=== PATIENT | male | born 1975 | race Caucasian/White ===

== ENCOUNTER 2018-03-26 16:14 | Emergency (ER) | payer SELFPAY ==
[2018-03-26 16:18] VITALS: BP 125/85; PULSE 92; RESP 16; TEMP 36.7; O2SAT 97
[2018-03-26] MEDS: Penicillin V POTASSIUM 500 MG TAB PO (16:51)
--- NOTE | 2018-03-27 13:06 | W.ED.FU ---
Follow Up Plan: Please see paper documentation for downtime charting
== END 2018-03-26 17:20 ==
PROVIDERS: Emergency Provider Nurse Practitioner Family
DX: R68.84 Jaw pain (principal); K04.7 Periapical abscess without sinus
CPT/HCPCS: 99283

== ENCOUNTER 2019-02-03 09:11 | Emergency (ER) | payer OTHER, SELFPAY ==
[2019-02-03] VITALS (12 sets, daily range): BP systolic 92–152; BP diastolic 72–97; PULSE 82–123; RESP 11–19; TEMP 36.5; O2SAT 94–97
--- NOTE | 2019-02-03 09:28 | DI.US_ITS ---
SYMPTOM/DIAGNOSIS: SWELLING, PAIN DUPLEX VENOUS ULTRASOUND RIGHT LOWER EXTREMITY: Duplex evaluation of the deep venous system was performed according to the usual protocol. The deep veins are freely compressible throughout to the level of the popliteal veins. There is normal doppler flow visible throughout and there is excellent flow augmentation with manual calf compression. CONCLUSION: No evidence of deep venous thrombosis. Note is made of an approximately 4 cm. in diameter right inguinal lymph node which is a nonspecific finding.
--- NOTE | 2019-02-03 09:31 | W.ED.GENAD ---
Discharge Plan Disposition Patient Disposition: HOME Condition: Stable Discharge Details Chief Complaint: Vascular Clinical Impression: Cellulitis Primary Care Provider: None,None ED Provider: Valentino Brihgt Home Meds and New Rx's Prescriptions: New cephalexin [Keflex] 500 mg capsule 500 mg PO QID 7 Days Qty: 28 RF: 0 Continued ibuprofen 800 mg Tablet 800 mg PO DAILY RF: 0 acetaminophen [Tylenol] 325 mg Tablet 325 - 650 mg PO PRN PRNRF: 0 Discharge Instructions Instructions: Cellulitis (ED) Additional Instructions: Continue to monitor symptoms over the next 24 to 48 hours. Return immediately for any new or significant worsening of symptoms or rapid spread of redness. Otherwise follow-up with primary care provider for reassessment as needed. Take your antibiotic for the full 7 days to ensure full resolution of your infection Stand Alone Forms: Work Release Referrals: Primary Care Provider [Outside] Medical Decision Making Patient presenting to the emergency department for chief complaint of right lower extremity pain and swelling. Patient states that this started 2 days ago and has worsened over the past 48 hours with erythema, subjective fever and chills last night,. He states that he started with some mid thigh pain that went away last night but then noted some significant swelling to his lower foot. Patient states previous history of similar episode but at that time was told it was cellulitis. Patient did take acetaminophen last night but has not taken anything for pain this morning. Physical exam shows a significantly swollen right lower extremity specifically from the calf down to the foot, mild erythema diffusely through the distal lower leg with tenderness to palpation of the lower right extremity. Exam is otherwise unremarkable nondiagnostic. Plan to check labs and ultrasound imaging of the right lower extremity for concern of DVT. Patient given ketorolac pending results. Per RN protocol EKG was performed and shows sinus rhythm, rate of 90, normal axis, inverted T waves in lead III but otherwise nondiagnostic no acute STEMI. EKG reviewed with attending physician. Review unremarkable and shows no leukocytosis, CMP shows elevated anion gap increased BUN and creatinine with mild decrease of GFR per patient's baseline. Otherwise CMP nondiagnostic. Pending ultrasound results spoke with patient and patient states that he had been having a hard time keeping down food and fluids due to his nausea and vomiting that is now resolving but he is now able to tolerate p.o. intake. Patient offered IV fluids which she refused at this time. Given that patient can tolerate p.o. intake I feel that is reasonable. Review of ultrasound shows no DVT but some lymphadenopathy noted. Given that patient states fever and chills, similar episode of cellulitis in the past with same symptoms, and no DVT with lymphadenopathy I do feel cellulitis is highly likely. Skin marker was utilized by direct support staff to marked out margins of erythema and patient placed on Keflex. Return precautions were discussed. Patient states he is going to establish a primary care provider hopefully today for reassessment and further care of his health needs. After discussion of diagnosis and plan of care patient has no further needs, questions, or concerns and states clear understanding to return to the emergency department for any worsening symptoms. HPI General Mode of arrival: ambulatory. Date/Time Provider Initiated Documentation: 02/03/19 09:17. Limitations to Documentation: no limitations. Information obtained by: patient and RN notes reviewed. History of Present Illness 44 year old M presents to the emergency department with the chief complaint of Right leg swelling and pain. , described as moderate, with intensity rated at 7. Quality is described as burning and aching, and is localized to the right and lower extremity. Patient started experiencing this day(s) (3) and it has been constant. No relieving factors improve symptom(s), No exacerbating factors reported . Patient did receive the following treatments prior to arrival, none Related Data Home Medications Medication Instructions Recorded Confirmed ibuprofen 800 mg PO DAILY 03/26/18 02/03/19 acetaminophen [Tylenol] 325 - 650 mg PO PRN PRN 02/03/19 02/03/19 cephalexin [Keflex] 500 mg PO QID 7 Days #28 cap 02/03/19 Previous Rx's Medication Instructions Recorded cephalexin [Keflex] 500 mg PO QID 7 Days #28 cap 02/03/19 Allergies Allergy/AdvReac Type Severity Reaction Status Date / Time No Known Allergies Allergy Unverified 02/03/19 09:20 General Stated Complaint: Vascular MIRELLA: 3 Review of Systems Constitutional Reports chills, Reports fever(s) and Denies headache(s) ENT Denies headache(s) Cardiovascular Denies chest pain, Denies irregular heart rhythm, Reports claudication, Reports leg edema, Denies lightheadedness and Denies dyspnea Respiratory Denies dyspnea Gastrointestinal Denies abdominal pain, Reports nausea and Reports vomiting (now resolved) Musculoskeletal Reports as per HPI Neurologic Denies headache(s) and Denies sensory deficit PFSH Social History Smoking/Tobacco Use Status: Former Tobacco Use Drug use: Rarely Do you feel safe at home: Yes Do you feel safe in your relationship?: Yes Exam Const General: cooperative, healthy appearing, comfortable and no acute distress Orientation: alert, awake and oriented x3 Resp Effort & Inspection: normal respiratory effort and able to speak in complete sentences Auscultation: clear to auscultation bilaterally Cardio Rate: regular rate Rhythm: regular rhythm Heart Sounds: S1 normal and S2 normal Pulses: normal peripheral pulses Neuro General: alert, awake, oriented x3, moves all extremities and no focal motor deficits Extrem Right lower extremity: edema Details: pitting and 2+ (right lower from calf down through foot), hip/thigh Details: no tenderness and no swelling, knee Details: swelling; no tenderness, lower leg Details: erythema Location: of the distal lower leg and tenderness (Diffuse distal lower leg) and ankle Details: normal to inspection and tenderness (Diffuse) Course Vital Signs Temperature 36.5 C 02/03/19 09:15 Pulse 98 H 02/03/19 09:15 Respiratory Rate 13 02/03/19 09:15 Blood Pressure 146/91 H 02/03/19 09:15 Pulse Oximetry 95 02/03/19 09:15 Temperature 36.5 C 02/03/19 09:15 Temperature Source Skin 02/03/19 09:15 Pulse 98 H 02/03/19 09:15 Respiratory Rate 13 02/03/19 09:15 Respiratory Effort 02/03/19 09:22 Blood Pressure 146/91 H 02/03/19 09:15 Pulse Oximetry 95 02/03/19 09:15 Oxygen Delivery Method Room Air 02/03/19 09:15 Oxygen Flow Rate 0 02/03/19 09:15
[2019-02-03] MEDS: Ketorolac 30 MG/ML VIAL IVP (09:44)
[2019-02-03 10:02] LABS: Abs Immature Grans 0.02 k/cumm (0.0-0.09); Absolute Basophil Count 0.02 k/cumm (0.0-0.2); Absolute Eosinophil Count 0.29 k/cumm (0.0-0.7); Absolute Lymphocyte Count 1.25 k/cumm (1.2-3.4); Absolute Neutrophil Count 6.69 k/cumm (1.2-6.7); Basophils % 0.2; HCT 43.7 % (40.0-50.0); HGB 14.8 g/dL (13.5-17.5); Immature Grans % 0.2; Lymphocytes % 12.9; Mean Corp. HGB Concentration 33.9 g/dL (32.0-36.0); Mean Corpuscular Hemoglobin 33.1 pg (27.0-33.0); Mean Corpuscular Volume 97.8 fL (80-95); Mean Platelet Volume 9.6 fL (8.0-11.0); Monocytes % 14.5; Neutrophils % 69.2; Platelet Count 246 x1000/uL (130-400); RBC 4.47 m/cumm (4.50-6.00); RBC Distribution Width 12.1 % (11.8-14.1); White Blood Cell Count 9.67 k/cumm (4.4-10.8)
[2019-02-03 10:12] LABS: ALT 29 U/L (12-78); AST 14 U/L (15-37); Albumin 3.7 g/dL (3.4-5.0); Alkaline Phosphatase 69 U/L (46-116); Anion Gap 13.6 mmol/L (3-11); BUN 19 mg/dL (7-18); Bilirubin, Total 0.5 mg/dL (0.2-1.0); CO2 23.4 mmol/L (21.0-32.0); CREATININE 1.48 mg/dL (0.70-1.30); Calcium 8.7 mg/dL (8.5-10.1); Chloride 102 mmol/L (98-107); Estimated GFR 51.63 (mL/min/1.73m2); Glucose 106 mg/dL (70-100); Potassium 3.5 mmol/L (3.5-5.1); Prothrombin Time 9.9 sec (9.3-11.0); Sodium 139 mmol/L (136-145); Total Protein 8.3 g/dL (6.4-8.2)
[2019-02-03] MEDS: Cephalexin 500 MG CAP PO (11:10)
== END 2019-02-03 11:25 | disposition home or self-care (01) ==
PROVIDERS: Emergency Provider Nurse Practitioner Family
DX: L03.115 Cellulitis of right lower limb (principal); R11.2 Nausea with vomiting, unspecified
CPT/HCPCS: 36415; 80053; 93005; 96374; 99285; 85025; 85610; 85730; 93010; 93971; 99284; J1885

== ENCOUNTER 2019-03-23 15:39 | Outpatient (CLI) | payer OTHER, SELFPAY ==
--- NOTE | 2019-03-23 15:10 | DI.RAD_ITS ---
EXAM: XR KNEE RT 3V AP,LAT,HRIA INDICATION: KNEE PAIN M25.569. COMPARISON: No exams were available for comparison TECHNIQUE: 2D digital imaging was performed. FINDINGS: There is prominent periarticular spurring throughout. There is also prominence of the tibial tuberc le. There is mild to moderate narrowing of the lateral femoral tibial joint space. IMPRESSION: Moderate to severe degenerative changes.
--- NOTE | 2019-03-23 15:10 | DI.RAD_ITS ---
EXAM: XR KNEE LT 3V AP,LAT,HIRA INDICATION: KNEE PAIN M25.569. COMPARISON: None TECHNIQUE: 2D digital imaging was performed. FINDINGS: There is prominent periarticular spurring throughout. Is mild narrowing of the lateral femoral tibi al joint space. No joint effusion is seen IMPRESSION: Moderate to severe degenerative changes.
== END 2019-03-23 15:59 ==
PROVIDERS: PCP Nurse Practitioner Family; Visit Provider Nurse Practitioner Family
DX: M25.562 Pain in left knee (principal); M25.561 Pain in right knee; M17.0 Bilateral primary osteoarthritis of knee
CPT/HCPCS: 73562

== ENCOUNTER 2019-04-20 20:55 | Outpatient (REF) | payer OTHER, SELFPAY ==
[2019-04-20 20:02] LABS: ALT 25 U/L (16-63); AST 18 U/L (15-37); Albumin 3.8 g/dL (3.4-5.0); Alkaline Phosphatase 70 U/L (46-116); Anion Gap 9.9 mmol/L (3-11); BUN 21 mg/dL (7-18); Bilirubin, Total 0.7 mg/dL (0.2-1.0); CO2 27.1 mmol/L (21.0-32.0); CREATININE 1.29 mg/dL (0.70-1.30); Calcium 8.9 mg/dL (8.5-10.1); Calculated LDL 84 mg/dL; Chloride 105 mmol/L (98-107); Cholesterol 136 mg/dL (50-200); Glucose 103 mg/dL (70-100); HDL Cholesterol 42 mg/dL (40-60); Potassium 4.2 mmol/L (3.5-5.1); Sodium 142 mmol/L (136-145); Triglyceride 50 mg/dL (30-150)
[2019-04-20 20:25] LABS: Uric Acid 9.4 mg/dL (3.5-7.2)
== END 2019-04-20 21:15 ==
LOC: NCHCN 20:55
PROVIDERS: PCP Nurse Practitioner Family; Visit Provider Nurse Practitioner Family
DX: Z00.00 Encounter for general adult medical examination without abnormal findings (principal); Z13.220 Encounter for screening for lipoid disorders; Z13.228 Encounter for screening for other metabolic disorders; Z13.89 Encounter for screening for other disorder
CPT/HCPCS: 80053; 80061; 84550

== ENCOUNTER 2019-07-13 15:04 | Emergency (ER) | payer OTHER, SELFPAY ==
[2019-07-13] VITALS (28 sets, daily range): BP systolic 90–140; BP diastolic 57–114; PULSE 54–154; RESP 12–20; TEMP 36.4; O2SAT 94–98
[2019-07-13] MEDS: dilTIAZem 25 MG/5 ML VIAL 20 MG IVP (15:17)
[2019-07-13] MEDS: Normal Saline 1,000 ML 1000 ML IV (15:20)
--- NOTE | 2019-07-13 15:20 | DI.RAD_ITS ---
EXAM: XR PORTABLE CHEST AP INDICATION: short of breath. COMPARISON: No exams were available for comparison TECHNIQUE: 2D digital imaging was performed. FINDINGS: The heart size is normal. A small area of scarring is seen at the left lower lung field, unchanged . The lungs are otherwise clear. No infiltrate, effusion or pneumothorax is seen. IMPRESSION: Negative chest x-ray.
--- NOTE | 2019-07-13 15:20 | W.ED.GENAD ---
Discharge Plan Disposition Patient Disposition: HOME Condition: Stable Discharge Details Chief Complaint: Palpitatns Clinical Impression: Atrial fibrillation with RVR Primary Care Provider: Masha Quiñones ED Provider: Lamont Ward Home Meds and New Rx's Prescriptions: Continued ibuprofen 800 mg Tablet 800 mg PO DAILY RF: 0 acetaminophen [Tylenol] 325 mg Tablet 325 - 650 mg PO PRN PRNRF: 0 meloxicam 7.5 mg Tablet 7.5 mg PO DAILY RF: 0 allopurinol 100 mg Tablet 100 mg PO DAILY RF: 0 Discharge Instructions Instructions: Atrial Fibrillation (ED) Additional Instructions: follow up with your primary care provider within 1 week if you feel your heart beating fast, chest pain/pressure, difficulty breathing return to the emergency department Medical Decision Making 44 yo male with hx of gout and with remote history of smoking, denies alcohol use or drug use other than marijuana and no prior cardiac history comes in with chief complaint of palpitations. He works 3pm-11pm and stays up until 6am and goes to bed until 2pm and states went to bed feeling well but woke up feeling his chest beating fast. Denies any pain or pressure, very mild shortness of breath. He arrives with afib which is new for him and rates in 130-150 otherwise hd stable. Denies vomit, fevers, abd pain, recent immobilization. no evidence of dvt on exam, no hypoxia, no pleuritic chest pain so doubt PE. No tearing back pain so doubt dissection. Will obtain lab work and give diltiazem to try and control his heart rate and reassess. Heart score is 2 will obtain troponin patient's HR in the 80-100 range and has no symptoms still in afib, will continue to monitor has hr still in 80-90 range in afib, no complaints. Labs and xray unremarkble. I recommended admission but he declined and prefers d/c given he feels well and has capacity to make his own decisions. Given his controlled HR feel this is reasonable and [id number] score is 0 so no anticoauglation needed. He is willing to stay for second troponin so will continue to monitor pt doing well, converted to sinus rhythm, will continue to monitor remains asymptomatic at this time and in sinus, repeat troponin negative, will d/c home and have him f/u with pcp return precautions given Differential Diagnosis Differential Diagnosis: afib, electrolyte abnormality acs Medical Records Medical records reviewed: Yes I reviewed the patient's medical records. Imaging Data Radiologic Study: Attestation: I personally reviewed and interpreted this imaging study as follows: Imaging: X-Ray My impression: no acute findings Lab Data Lab results reviewed: Yes I reviewed the patient's lab results. ECG Data Attestation: I personally reviewed and interpreted this ECG (s) as follows: Prior ECG tracings: not available for review Interpretation: atrial fibrillation, rate of 149. qtc 463 2nd ekg shows rate of 79,qtc 417, atrial fibrillation, no acute st t wave ischemic findings 3rd ekg shows sinus rhythm, rate of 79, pr 168, no acute st t wave ischemic findings 4th ekg shows sinus rhythm, rate of 74, pr 166, no acute st t wave ischemic findings HPI General Mode of arrival: ambulatory. Date/Time Provider Initiated Documentation: 07/13/19 15:05. Limitations to Documentation: no limitations. Information obtained by: patient. History of Present Illness 44 year old M presents to the emergency department with the chief complaint of palpitations, described as moderate, Patient started experiencing this hour(s) (1) and it has been constant. No relieving factors improve symptom(s), No exacerbating factors reported . Patient notes no other symptoms.. Patient did receive the following treatments prior to arrival, none Related Data Home Medications Medication Instructions Recorded Confirmed ibuprofen 800 mg PO DAILY 03/26/18 07/13/19 acetaminophen [Tylenol] 325 - 650 mg PO PRN PRN 02/03/19 07/13/19 allopurinol 100 mg PO DAILY 07/13/19 07/13/19 meloxicam 7.5 mg PO DAILY 07/13/19 07/13/19 Allergies Allergy/AdvReac Type Severity Reaction Status Date / Time No Known Allergies Allergy Unverified 07/13/19 15:10 General Stated Complaint: Palpitatns MIRELLA: 2 Review of Systems All systems reviewed & are unremarkable except as noted in HPI and below Constitutional Constitutional: Denies chills, Denies fever(s) and Denies weakness Cardiovascular Cardiovascular: Denies dyspnea Respiratory Respiratory: Denies cough and Denies dyspnea Gastrointestinal Gastrointestinal: Denies abdominal pain, Denies nausea and Denies vomiting Musculoskeletal Musculoskeletal: Denies joint swelling Neurologic Neurologic: Denies weakness [facility] Social History Smoking/Tobacco Use Status: Former Tobacco Use Drug use: Rarely Current gender identity: male Do you feel safe at home: Yes Do you feel safe in your relationship?: Yes Exam Const General: no acute distress Orientation: alert HENMT Head: normal to inspection Ears: external ears normal General nose exam: external nose normal Mouth: moist mucous membranes Eyes General: appearance normal, both eyes and all related structures Neck Neck: normal visual inspection Resp Effort & Inspection: normal respiratory effort and able to speak in complete sentences Cardio Rate: tachycardic Skin General skin exam: no rashes or lesions noted Neuro General: alert and oriented x3 Extrem General: normal to inspection Psych Mental Status: mental status grossly normal Course Vital Signs Vital signs: Vital Signs Temperature 36.4 C L 07/13/19 15:07 Pulse 143 H 07/13/19 15:07 Respiratory Rate 07/13/19 15:07 Pulse Oximetry 98 07/13/19 15:07 Temperature 36.4 C L 07/13/19 15:07 Temperature Source Skin 07/13/19 15:07 Pulse 143 H 07/13/19 15:07 Respiratory Rate 07/13/19 15:07 Respiratory Effort 07/13/19 15:12 Blood Pressure Position Supine 07/13/19 15:07 Pulse Oximetry 98 07/13/19 15:07 Oxygen Delivery Method Room Air 07/13/19 15:07 Oxygen Flow Rate 0 07/13/19 15:07 Critical Care Time Critical Care Time Critical Care Time: Yes Total Critical Care Time: 60 (minutes) Attestation: time spent giving marc blockers in patient with afib with rvr, frequent reassessments in patient with potential to deteriorate at any time
[2019-07-13 15:29] LABS: Abs Immature Grans 0.01 k/cumm (0.0-0.09); Absolute Basophil Count 0.04 k/cumm (0.0-0.2); Absolute Eosinophil Count 0.49 k/cumm (0.0-0.7); Absolute Lymphocyte Count 1.51 k/cumm (1.2-3.4); Absolute Monocyte Count 0.84 k/cumm (0.11-0.7); Absolute Neutrophil Count 3.62 k/cumm (1.2-6.7); Basophils % 0.6; Eosinophils % 7.5; HGB 14.9 g/dL (13.5-17.5); Immature Grans % 0.2 %; Lymphocytes % 23.2; Mean Corp. HGB Concentration 34.7 g/dL (32.0-36.0); Mean Corpuscular Volume 98.2 fL (80-95); Mean Platelet Volume 8.9 fL (8.0-11.0); Monocytes % 12.9; Neutrophils % 55.6; Platelet Count 258 x1000/uL (130-400); RBC 4.38 m/cumm (4.50-6.00); RBC Distribution Width 12.2 % (11.8-14.1); White Blood Cell Count 6.51 k/cumm (4.4-10.8)
[2019-07-13 15:43] LABS: ALT 33 U/L (16-63); AST 17 U/L (15-37); Alkaline Phosphatase 80 U/L (46-116); Anion Gap 12.4 mmol/L (3-11); BUN 28 mg/dL (7-18); Bilirubin, Total 0.5 mg/dL (0.2-1.0); CO2 22.6 mmol/L (21.0-32.0); CREATININE 1.24 mg/dL (0.70-1.30); Calcium 8.6 mg/dL (8.5-10.1); Chloride 105 mmol/L (98-107); Glucose 100 mg/dL (74-106); Magnesium 1.7 mg/dL (1.8-2.4); Potassium 3.8 mmol/L (3.5-5.1); Sodium 140 mmol/L (136-145); Total Protein 7.5 g/dL (6.4-8.2)
[2019-07-13 15:48] LABS: Troponin I < 0.05 ng/Ml (<0.06)
[2019-07-13] MEDS: dilTIAZem CD 180 MG CAPCR PO (15:48)
[2019-07-13 15:49] LABS: Prothrombin Time 10.1 sec (9.3-11.0)
--- NOTE | 2019-07-13 17:44 | NUR.NOTE ---
Referral faxed to [facility] Masha Quiñones.Nursing Note:
[2019-07-13 18:31] LABS: Troponin I < 0.05 ng/Ml (<0.06)
== END 2019-07-13 18:45 | disposition home or self-care (01) ==
PROVIDERS: Emergency Provider Emergency Medicine; PCP Nurse Practitioner Family
DX: I48.91 Unspecified atrial fibrillation (principal); I47.2 Ventricular tachycardia
CPT/HCPCS: 36415; 80053; 93005; 96361; 96374; 99291; 71045; 83735; 84484; 85025; 85610; 85730; 93010

== ENCOUNTER → 2021-08-16 03:29 | Outpatient (CLI) | payer MEDICAID, SELFPAY ==
--- NOTE | 2021-08-16 14:08 | DI.US_ITS ---
APPROVED REPORT EXAM: Comprehensive 2D, Doppler, and color-flow Echocardiogram Patient Location: Out-Patient Associate Art Director: Ambar Mccormick RDCS (AE) Indications: Paroxysmal A FIb Other Information Study Quality: Fair. Technically limited study due to body habitus. Conclusion Mild concentric left ventricular hypertrophy. Estimated ejection fraction is 60 to 65%. Wall motion is normal The right ventricle appears grossly normal in size and systolic function Mildly dilated left atrium. Right atrium is normal in size The aortic valve is sclerotic and probably bicuspid. There is moderate to severe aortic stenosis. P eak gradient is 59, mean 38 mmHg. Calculated aortic valve area is 1.19 cm??. There is no aortic reg urgitation Normal mitral valve with trace regurgitation Normal tricuspid valve with trace regurgitation. Unable to estimate right ventricular systolic press ure Dilated ascending aorta measuring 4.23 cm Wall motion Left Ventricle The left ventricle is normal size. The left ventricular systolic function is normal. The left ventric ular ejection fraction is within the normal range. Mild concentric left ventricular hypertrophy. Ther e is normal LV segmental wall motion. There is no ventricular septal defect visualized. LVEF is 60%. Right Ventricle Right ventricle is grossly normal in size. Right ventricular systolic function is grossly normal. Atria Left atrium is mildly dilated. The right atrium size is normal. The interatrial septum is intact with no evidence for an atrial septal defect. Aortic Valve Aortic valve is calcified. Aortic valve is probably bicuspid Moderate to severe aortic stenosis. Peak aortic valve gradient is 59.8mmHg. Highest mean aortic valve gradient is 37.9mmHg. Calculated ELAINA by the continuity equation is 1.19cm2. No aortic regurgitation is present. Mitral Valve The mitral valve is normal in structure. No evidence of mitral valve stenosis. Trace mitral regurgita tion. Tricuspid Valve The tricuspid valve is normal in structure. There is no tricuspid valve stenosis. Trace tricuspid reg urgitation. Unable to assess PA pressure. Pulmonic Valve The pulmonary valve is normal in structure. There is no pulmonic valvular stenosis. Trace pulmonic re gurgitation. Great Vessels The aortic root is normal in size. The ascending aorta is severely dilated. Aortic arch is normal in caliber. IVC is normal in size and collapses >50% with inspiration. Pericardium There is no pericardial effusion. 2D Dimensions IVSD d PLAX 1.34 cm M: 0.6-1.2 LV Vol A2C d MOD 125.4 mL LVPW d PLAX 1.34 cm M: 0.6 - 1.2 LV Vol A4C d MOD 127.8 mL LVID d PLAX 4.97 cm M: 4.2 - 5.8 LA vol/ BSA A2C s A-L 21.3 mL/m2 LVDs 3.35 cm M: 2.5 - 4.0 LA vol/ BSA A4C s A-L 25.5 mL/m2 Ao Root d 3.39 cm M: 3.1 - 3.7 LA Vol/ BSA Biplane s A-L 23.7 mL/m2 RA Area A4C 17.29 cm2 LA Area A4C s MOD 20.41 cm2 RA Vol/ BSA A4C s A-L 20.4 mL/m2 LA Area A2C s MOD 18.96 cm2 Ao Asc Diam d 4.23 cm M: 2.6 - 3.4 LV EF A4C MOD 58.8 % LV EF Teichholz 59.8 % LV EF A2C MOD 60.2 % LVEF (Haynes's) 59.72 % M: 52 - 72 LV EF Biplane MOD 59.7 % LV Volume 89.09 mL M: 62 - 150 SV 76.57 mL LV Volume Index 34.80 mL/m2 M: 34 - 74 SV Index 29.85 mL/m2 LV Vol Biplane MOD 128.2 mL FS 31.90 % M-Mode TAPSE 2.53 cm (M/F) >1.7 LV Diastology MV E' medial 0.166 (>0.07 m/s) E/A Ratio 1.1 LV E/e MED 4.70 (<14) MV E Vmax 0.79 (0.4-1.3 m/s) MV E' lateral 0.152 (>0.1 m/s) MV A Vmax 0.70 (0.4-1.3 m/s) LV E/e LAT 5.15 (<14) MV E/A Ratio 1.11 MV E/E' medial 4.74 MV E/E' lateral 5.19 Aortic Valve LVOT Area 4.11 cm2 AoV Area Vmax 1.19 cm2 LVOT Vmax 1.12 m/s AoV Area/ BSA (Vmax) 0.46 cm2/m2 LVOT Mean Edmund. 0.77 m/s ELAINA Mean Edmund. 1.06 cm2 LVOT Peak Grad 5.0 mmHg ELAINA Mean Edmund. Index 0.41 cm2/m2 LVOT Mean Grad 2.7 mmHg LVOT VTI 0.285 m LVOT Diam s 2.25 cm AoV Vmax 3.87 m/s Velocity Ratio 0.28 AoV Mean Edmund. 2.97 m/s AoV Peak Grad 59.8 mmHg LVOT SV 117.07 mL AoV Mean Grad 37.9 mmHg AoV VTI 0.862 m AoV Area VTI 1.36 cm2 AoV Area/ BSA (VTI) 0.53 cm/m2 Mitral Valve MV DT 202 (160-240 msec) MV PHT 58 msec MV Area PHT 3.76 cm2 MV VTI 0.236 m MV Area VTI 4.97 (4.0-6.0 cm2) Pulmonary Valve PV Vmax 1.19 (0.5-1.5 m/s) RVOT Peak Gr. 3.54 mmHg PV Peak Grad 5.7 mmHg RVOT Mean Gr. 1.65 mmHg PV Mean Grad 2.8 mmHg RVOT VTI 0.186 m PV VTI 0.244 m RVOT Vmax 0.94 m/s
== END ==
PROVIDERS: PCP Nurse Practitioner Family; Visit Provider Physician Assistant
DX: I48.0 Paroxysmal atrial fibrillation (principal); I77.810 Thoracic aortic ectasia; I42.2 Other hypertrophic cardiomyopathy
CPT/HCPCS: 93306

== ENCOUNTER 2021-09-24 08:24 | Outpatient (CLI) | payer MEDICAID, SELFPAY ==
--- NOTE | 2021-09-24 08:15 | RT.EKG_ITS ---
APPROVED REPORT Exam: Resting ECG Reason for Exam: , Afib Patient Location: O HR:83 bpm ECG Measurements Heart Rate 83 AXIS PA 168 P 8 QRSd 104 QRS 25 QT 384 T 10 QTc 452 Conclusion Sinus rhythm...normal P axis, V-rate 50- 99 Normal Electrocardiogram
== END 2021-09-24 08:25 | disposition home or self-care (01) ==
LOC: DI.CARD 08:25
PROVIDERS: PCP Nurse Practitioner Family; Visit Provider Internal Medicine Cardiovascular Disease
DX: I35.0 Nonrheumatic aortic (valve) stenosis (principal); I48.91 Unspecified atrial fibrillation
CPT/HCPCS: 93010

== ENCOUNTER 2023-06-19 15:04 | Outpatient (REF) | payer MEDICAID, SELFPAY ==
[2023-06-19 19:15] LABS: HCT 44.1 % (40.0-50.0); HGB 15.7 g/dL (13.5-17.5); MCH 33.5 pg (27.0-33.0); MCHC 35.6 % (32.0-36.0); MCV 94 fL (80-95); Platelet Count 267 10^3/uL (130-400); RBC 4.68 10^6/uL (4.36-5.78); RDW 11.7 % (11.8-14.1); RDW-SD 40.6 fL; WBC 5.42 10^3/uL (4.4-10.8)
[2023-06-19 19:30] LABS: Anion Gap 11.3 mmol/L (3-11); BUN 15 mg/dL (7-18); CO2 23.7 mmol/L (21.0-32.0); CREATININE 1.4 mg/dL (0.70-1.30); Calcium 8.8 mg/dL (8.5-10.1); Calculated LDL 120 mg/dL (<100); Chloride 103 mmol/L (98-107); Cholesterol 169 mg/dL (<200); Glucose 95 mg/dL (74-106); HDL Cholesterol 41 mg/dL (40-60); Potassium 4.2 mmol/L (3.5-5.1); Sodium 138 mmol/L (136-145); Triglyceride 43 mg/dL (<150)
[2023-06-19 19:52] LABS: Uric Acid 10.1 mg/dL (3.5-7.2)
== END 2023-06-19 15:05 | disposition home or self-care (01) ==
LOC: NCHCN 15:04
PROVIDERS: PCP Physician Assistant; Visit Provider Physician Assistant
DX: M10.9 Gout, unspecified (principal); I48.0 Paroxysmal atrial fibrillation; R79.89 Other specified abnormal findings of blood chemistry; Z13.220 Encounter for screening for lipoid disorders
CPT/HCPCS: 80048; 80061; 85027; 81050; 84550; 84560

== ENCOUNTER 2024-05-27 15:22 | Outpatient (REF) | payer MEDICAID, SELFPAY ==
--- OUTSIDE RECORDS SUMMARY | 2024-05-27 15:24 | XMS_ITS | Clinical Summary ---
Author Organization [facility] Address [address] [place] [address] Care Team Providers Care Planning Specialist Name Role Phone None, Provider Primary Care Provider Unavailabl e Allergies No known active allergies Medications HYDROmorphone (DILAUDID) 2 mg tablet Take 1-2 Tabs by mouth every 4 hours as needed for Pain. 40 Tab 0 03/30/2009 Active docusate sodium (COLACE) 100 mg capsule Take 1 Cap by mouth 2 times daily as needed for Constipatio n. 100 Cap 0 03/30/2009 Active Active Problems Problem Noted Date Diagnosed Date Diverticulitis of colon with perforation 009 Obesity 03/25/2009 Surgical History Surgery Date Site/Laterality Comments KNEE ARTHROSCOPY Medical History Medical History Date Comments Obesity Dental abscess Social History Tobacco Use Types Packs/Day Years Used Date Smoking Tobacco: Former Alcohol Use Standard Drinks/Week Comments Yes 0 (1 standard drink = 0.6 oz pur e alcohol) Sex and Gender Information Value Date Recorded Sex Assigned at Not on file Legal Sex Male 18:46 EST Gender Identity Not on file Sexual Orientation Not on file Obstetrics History Last Filed Vital Signs Vital Sign Reading Time Taken Comments Blood Pressure 116/70 03/30/2009 1112 EDT Pulse 77 03/30/2009 1112 EDT Temperature 35.7 ??C (96.3 ??F) 03/30/2009 1112 EDT Respiratory Rate 22 03/30/2009 1112 EDT Oxygen Saturation 96% 03/30/2009 1112 EDT Inhaled Oxygen Concentration - - Weight - - Height - - Body Mass Index - - Plan of Treatment Health Maintenance Due Date Last Done Comments Hepatitis C Screen 1975 Hepatitis B Vaccine (1 of 3 - 19+ 3-dose series) 01/14 COVID-19 Vaccine ( season) 2024 Advance Directives For more information, please contact: [phone] * Full Code (Latest Code Status on File) Date Activated Date Inactivated Comments 03/25/2009 14:41 03/30/2009 18:34 Care Teams Planning Specialist Relationship Specialty Start Date End Date None, Provider PCP - General 03/25/09
--- OUTSIDE RECORDS SUMMARY | 2024-05-27 15:24 | XMS_ITS | Referral Summary ---
Author Organization [facility] Address [address] [place] [address] Care Team Providers Care Finance Assistant Name Role Phone None, Provider Primary Care [...] of colon with perforation 009 Obesity 03/25/2009 Social History Tobacco Use Types Packs/Day Years Used Date Smoking Tobacco: Former Alcohol Use Standard Drinks/Week Comments Yes 0 (1 standard drink = 0.6 oz pur e alcohol) Sex and Gender Information Value Date Recorded Sex Assigned at Not on file Legal Sex Male 18:46 EST Gender Identity Not on file Sexual Orientation Not on file Last Filed Vital Signs Vital Sign Reading Time Taken Comments Blood Pressure 116/70 03/30/2009 1112 EDT Pulse 77 03/30/2009 1112 EDT Temperature 35.7 ??C (96.3 ??F) 03/30/2009 1112 EDT Respiratory Rate 22 03/30/2009 1112 EDT Oxygen Saturation 96% 03/30/2009 1112 EDT Inhaled Oxygen Concentration - - Weight - - Height - - Body Mass Index - - Plan of Treatment Not on file Advance Directives For more information, please contact: [phone] * Full Code (Latest Code Status on File) Date Activated Date Inactivated Comments 03/25/2009 14:41 03/30/2009 18:34 Care Teams Finance Assistant Relationship Specialty Start Date End Date None, Provider PCP - General 03/25/09
--- OUTSIDE RECORDS SUMMARY | 2024-05-27 15:25 | XMS_ITS | Encounter Summary ---
Author Organization [facility] Address [address] [place] [address] Care Team Providers Care Gridcap Machine Operator Name Role Phone None, Provider Primary Care Provider Unavailabl e Encounter Details Date Type Department Care Team (Late st Contact Info) Description 03/25/2009 13:41 EDT - 03/30/2009 16:32 EDT Hospital Encounter [facility] General Surgery Unit [address] [place] [address] Johann Duncan MD [address] [facility] [address] [place] [address] Discharge Disposition: Home or Self Care Social History Tobacco Use Types Packs/Day Years Used Date Smoking Tobacco: Former Alcohol Use Standard Drinks/Week Comments Yes 0 (1 standard drink = 0.6 oz pur e alcohol) Sex and Gender Information Value Date Recorded Sex Assigned at Not on file Legal Sex Male 18:46 EST Gender Identity Not on file Sexual Orientation Not on file documented as of this encounter Last Filed Vital Signs Vital Sign Reading Time Taken Comments Blood Pressure 116/70 03/30/2009 1112 EDT Pulse 77 03/30/2009 1112 EDT Temperature 35.7 ??C (96.3 ??F) 03/30/2009 1112 EDT Respiratory Rate 22 03/30/2009 1112 EDT Oxygen Saturation 96% 03/30/2009 1112 EDT Inhaled Oxygen Concentration - - Weight - - Height - - Body Mass Index - - documented in this encounter Discharge Summaries * Martin Moise MD - 03/25/2009 1723 EDT [facility] Discharge Summary Chief Complaint/Reason for Admission: Abdominal pain Principal/Final Diagnosis: Diverticulitis of colon Principal Procedure: None Date: Not applicable Prognosis: Good Condition at Discharge: Good Relevant Studies at Discharge: CT Ab/Pelv (from OSH) (03/25/09): Diffuse wall thickening and edema in the distal colon with adjacent fluid and extraperitoneal gas with pneumoperitoneum suggesting occult colonic perforation relatedto colitis. ([facility] official read) Assessment at Discharge: Vital signs: Patient Vitals in the past 12 hrs: BP Temp Temp src Pulse Resp SpO2 Height Wt - Scale 03/30/09 0729 120/87 mmHg 36.4 ??C (97.5 ??F) Tympanic 66 20 97 % - - 03/30/09 0701 123/81 mmHg 35.9 ??C (96.6 ??F) - 88 18 98 % - - 03/30/09 0650 138/89 mmHg - - 109 24 99 % - - 03/30/09 0331 133/76 mmHg 36.7 ??C (98.1 ??F) - 85 18 98 % - - 03/29/09 2313 127/68 mmHg 37.1 ??C (98.8 ??F) - 80 18 96 % - - Activities of daily living level: Full, independent Hospital Course: Ashlyn Mendez is a 34M with PMH remarkable for morbid obesity and occasional GERD symptoms transferred from [facility] ([facility]) for perforated sigmoid diverticulitis. Patient was in usual state of good health until 2 days prior to admission when he developed crampy abdominal pain. The pain was located mostly over his LLQ, mostly 4-6/10, but with frequent spikes to 10/10. He also noted fever and obstipation. His last BM was 4 days prior to admission (except for a few very small non-bloody loose stools 2 days block captain). The night before admission, his symptoms failed to resolve, so he went to [facility] ED. Evaluation there was remarkable for fever 38.9, LLQ abdominal pain and distension. His WBC was hamilton vated at 21. CT Ab/Pelv showed diffuse wall thickening and edema in the distal colon with adjacentfluid and extraperitoneal gas with pneumoperitoneum suggesting occult colonic perforation related to colitis. The recommendation at that time was for partial colectomy with diverting colostomy, but the patient wished to avoid a colostomy. Therefore, after receiving a dose of IV antibiotics, the patient was transferred to [facility] for further care. On arrival at [facility], patient was afebrile and hemodynamically stable, although his abdominal symptoms continued. He gave additional history of 2 episodes of nausea and vomiting two days block captain (with one episode of vomiting a small amount of blood). However, he denied nausea at time of admission. His primary complaint was his ongoing intermittent severe crampy LLQ pain and continued obstipation. At the time of admission to [facility], he specifically denied fevers, chills, sore throat, chest pain, SOB, nausea, vomiting, dysuria, or swelling/pain in his extremities. On admission, patient was initially managed conservatively. He remained NPO, was given maintenance fluids, and started antibiotics (cipro & flagyl). On HD#2 pt has passed flatus and BM with no N/V or increased distension. Pt had good pain control and remained afebrile. On HD#3 patient's abdominal exam showed interval improvement, and he was doing well on continued IV antibiotics and NPO diet.HD#4 patient had no pain or N/V and his abdomen was soft and non-tender. He was advanced to surgical soft diet and continued on antibiotics. He was transitioned to PO pain control. On HD#5, patient remained stable in excellent condition and was clinically ready to be discharged home with PO antibiotics: 10 days of Cipro and Flagyl. He will follow up with Dr. Duncan in clinic. Last Lab Results at Discharge: BUN: Lab Results Component Value Date/Time ??? BUN 7 03/30/09 7:25 AM Creatinine: Lab Results Component Value Date/Time ??? CREATININE 0.81 03/30/09 7:25 AM CBC: Lab Results Component Value Date/Time ??? WBC 7.92 03/30/09 7:25 AM ??? RBC 3.84 03/30/09 7:25 AM ??? HGB 13.1 03/30/09 7:25 AM ??? HCT 37.5 03/30/09 7:25 AM ??? MCV 97 03/30/09 7:25 AM ??? MCH 34.0 03/30/09 7:25 AM ??? MCHC 34.9 03/30/09 7:25 AM ??? PLT 359 03/30/09 7:25 AM Electrolytes: Lab Results Component Value Date/Time ??? NA 138 03/30/09 7:25 AM ??? K 3.9 03/30/09 7:25 AM ??? CL 106 03/30/09 7:25 AM ??? CO2 26 03/30/09 7:25 AM Discharge Summary Completed: 03/30/2009 Cosigned by Johann Duncan MD at 04/04/2009 10:29 EDT documented in this encounter Discharge Instructions * Discharge Instructions* Martin Moise MD - 03/30/2009 14:15 EDT Diet: You may return to normal eating as you wish. Activity: No restrictions. Driving: No driving while taking narcotic pain medications. Skin/Wound Care: Not applicable Bathing: No restrictions Pending Results: Not applicable Symptoms to Call Your Doctor About: Chest pain (angina) Dizziness or fainting Decreased urine output Fever greater than 101.5 or chills Increased or new pain Nausea or vomiting Recurrance of symptoms that brought you to the hospital Shortness of breath or rapid breathing Appointments: Please follow up with Johann Black MD in 4 weeks as needed. Please call [phone] for an appointment. Call sooner or return to the Emergency Department if your symptoms recur or you have anynew concerns. Additional Instructions: Please complete your course of antibiotics as prescribed. Follow-up Services Contacted at Discharge: none Health Risk and Disease Information: Not applicable documented in this encounter Medications at Time of Discharge HYDROmorphone (DILAUDID) 2 mg tablet Take 1-2 Tabs by mouth every 4 hours as needed for Pain. 40 Tab 0 03/30/2009 docusate sodium (COLACE) 100 mg capsule Take 1 Cap by mouth 2 times daily as needed for Constipation. 100 Cap 0 03/30/2009 ciprofloxacin (CIPRO) 500 mg tablet Take 1 Tab by mouth every 12 hours for 10 days. 20 Tab 0 03/30/2009 04/09/2009 metronidazole (FLAGYL) 250 mg tablet Take 2 Tabs by mouth 3 times daily for 10 days. 60 Tab 0 03/30/2009 04/09/2009 documented as of this encounter Ordered Prescriptions Prescription Sig Dispense Quantity Refills Last Filled Start Date End Date docusate sodium (COLACE) 100 mg capsule Take 1 Cap by mouth 2 times daily as needed for Constipation . 100 Cap 0 03/30/2009 HYDROmorphone (DILAUDID) 2 mg tablet Take 1-2 Tabs by mouth every 4 hours as needed for Pain. 40 Tab 0 03/30/2009 metronidazole (FLAGYL) 250 mg tablet Take 2 Tabs by mouth 3 times daily for 10 days. 60 Tab 0 03/30/2009 04/09/2009 ciprofloxacin (CIPRO) 500 mg tablet Take 1 Tab by mouth every 12 hours for 10 days. 20 Tab 0 03/30/2009 04/09/2009 documented in this encounter Discharge Disposition Disposition Code Departure Means Destination Home or Self Care documented in this encounter Progress Notes * Perry Arevalo - 03/30/2009 1545 EDT Pt given discharge instructions and IV D/C'd. * Johann Duncan MD - 03/30/2009 0646 EDT [facility] Progress Note Admit Date: 03/25/2009 LOS: 5 days CC: Diverticulitis of Colon with Perforation Subjective: Overnight Events: Slept very well. Feels good this AM. Review of Systems Denies abdominal pain Meds Patient is currently taking hydromorphone, oxycodone-acetaminophen, dextrose 5% and 0.9% nacl with kcl 20 meq/l, acetaminophen, ondansetron (pf), ciprofloxacin, metronidazole, naloxone, and morphine in ns 100 mg/100 ml. Objective: Vitals: Temp (24hrs), Av.9 ??C (98.5 ??F), Min:36.6 ??C (97.9 ??F), Max:37.2 ??C (99 ??F) Blood pressure 133/76, pulse 85, temperature 36.7 ??C (98.1 ??F), resp. rate 18, SpO2 98%. Patient is on room air Intake/Output Summary (Last 24 hours) at 03/30/09 0646 Last data filed at 03/30/09 0331 Gross per 24 hour Intake 2469 ml Output 1675 ml Net 794 ml I/O for Current Shift: In: 130 (30 I.V.) Out: 750 (750 Urine) Exam General appearance: alert, cooperative, no distress Lungs: clear to auscultation bilaterally Heart: regular rate and rhythm, S1, S2 normal, no murmur, click, rub or gallop Abdomen: soft, non-tender; bowel sounds normal; no masses, no organomegaly Extremities: extremities normal, atraumatic, no cyanosis or edema Data Review Pending Assessment: Ashlyn Mendez is a(n) 34 y.o. old male who was admitted for Diverticulitis of Colon with Perforation on 03/25/2009. He is now pain free. Patient Active Hospital Problem List: *Diverticulitis of Colon with Perforation (03/25/2009) Obesity (03/25/2009) Plan: Cont PO pain meds Advance to surgical soft diet D/C today with 10 days PO cipro/flagyl MARTIN MOISE MD #[id number] Patient examined. Above note reviewed. Agree with findings. Patient had some nausea, emesis this am. Feels better now. Will see how he does remainder of day to decide if ready for discharge. Continueantibiotics. Johann Duncan MD * Johann Duncan MD - 03/29/2009 0656 EDT [facility] Progress Note Admit Date: 03/25/2009 LOS: 4 days CC: Diverticulitis of Colon with Perforation Subjective: Overnight Events: Slept very well. Feels good this AM. Review of Systems Denies abdominal pain Meds Patient is currently taking dextrose 5% and 0.9% nacl with kcl 20 meq/l, acetaminophen, ondansetron(pf), ciprofloxacin, metronidazole, naloxone, and morphine in ns 100 mg/100 ml. Objective: Vitals: Temp (24hrs), Av.4 ??C (97.5 ??F), Min:36 ??C (96.8 ??F), Max:37 ??C (98.6 ??F) Blood pressure 145/90, pulse 86, temperature 36.3 ??C (97.3 ??F), temperature source Tympanic, resp. rate 16, SpO2 98%. Patient is on room air Intake/Output Summary (Last 24 hours) at 03/29/09655 Last data filed at 03/29/09 06 Gross per 24 hour Intake 3535.75 ml Output 850 ml Net 2685.75 ml I/O for Current Shift: In: 301 (1 I.V.) Out: 850 (850 Urine) Exam General appearance: alert, cooperative, no distress Lungs: clear to auscultation bilaterally Heart: regular rate and rhythm, S1, S2 normal, no murmur, click, rub or gallop Abdomen: soft, non-tender; bowel sounds normal; no masses, no organomegaly Extremities: extremities normal, atraumatic, no cyanosis or edema Data Review Pending Assessment: Ashlyn Mendez is a(n) 34 y.o. old male who was admitted for Diverticulitis of Colon with Perforation on 03/25/2009. He is now pain free. Patient Active Hospital Problem List: *Diverticulitis of Colon with Perforation (03/25/2009) Obesity (03/25/2009) Plan: SLIV and D/C INTERDISCIPLINARY PROFESSOR Advance to surgical soft diet Continue antibiotics Possible d/c to home today vs tomorrow HERMES GONG MD #[id number] Patient examined, above note reviewed. Agree with findings. Patient has minimal pain, is toleratingpo liquids well. Plan is to advance to soft diet today. Johann Duncan MD 03/29/2009 6:56 AM * Johann Duncan MD - 03/28/2009 0648 EDT [facility] Progress Note Admit Date: 03/25/2009 LOS: 3 days CC: Diverticulitis of Colon with Perforation Subjective: 24-Hour Events: No acute events overnight. Passing flatus and + BM yesterday w/great relief. Pain improved. Review of Systems Negative except above Meds Patient is currently taking dextrose 5% and 0.9% nacl with kcl 20 meq/l, acetaminophen, ondansetron(pf), ciprofloxacin, metronidazole, naloxone, morphine in ns 100 mg/100 ml, and dextrose 5% and 0.45% nacl with kcl 20 meq/l. Objective: Vitals: Temp (24hrs), Av.1 ??C (98.7 ??F), Min:36.3 ??C (97.3 ??F), Max:38.2 ??C (100.8 ??F) Blood pressure 131/80, pulse 86, temperature 37.5 ??C (99.5 ??F), temperature source Tympanic, resp. rate 18, SpO2 98%. Patient is on room air Intake/Output Summary (Last 24 hours) at 03/28/09 0648 Last data filed at 03/28/09 0333 Gross per 24 hour Intake 2438.17 ml Output 975 ml Net 1463.17 ml I/O for Current Shift: In: 700.58 (600.58 I.V.) Out: 350 (350 Urine) Exam General appearance: A&Ox3, NAD Lungs: CTAB Heart: RRR Abdomen: Obese, soft, +bs, distended but not tympanitic, mild LLQ tenderness, no rebound, no diffuse peritonitis Extremities: WWP, no edema Data Review CBC: Lab Results Component Value Date/Time ??? WBC 14.44 03/27/09 5:59 AM ??? RBC 3.36 03/27/09 5:59 AM ??? HGB 11.7 03/27/09 5:59 AM ??? HCT 33.1 03/27/09 5:59 AM ??? PLT 219 03/27/09 5:59 AM BMP: Lab Results Component Value Date/Time ??? NA 136 03/27/09 5:59 AM ??? K 3.7 03/27/09 5:59 AM ??? CL 104 03/27/09 5:59 AM ??? CO2 27 03/27/09 5:59 AM ??? BUN 12 03/27/09 5:59 AM ??? CREATININE 0.89 03/27/09 5:59 AM Assessment: Ashlyn Mendez is a(n) 34 y.o. old male who was admitted for Diverticulitis of Colon with Perforation on 03/25/2009. He is HD#3, doing well on IV antibiotics, NPO. Afebrile. Pain and exam continue toshow interval improvement. Patient Active Hospital Problem List: *Diverticulitis of Colon with Perforation (03/25/2009) Obesity (03/25/2009) Plan: Cont abx: IV cipro, flagyl Cont morphine INTERDISCIPLINARY PROFESSOR for pain NPO except ice chips MIVF Consider NGT if patient develops nausea/vomiting and/or worsening distension Ambulate/IS MARTIN MOISE MD [facility] #[id number] 03/28/2009 6:48 AM Patient examined. Above note reviewed. Agree with findings. Still has mild tenderness in LLQ. Will hold on PO intake this am. If improves can start liquids later today or tomorrow. Johann Duncan MD * Jyoti Méndez - 03/27/2009 1406 EDT This patient has been assessed using the [facility] Case Management risk screen. CM met with pt today on admission for perforated diveriticulitis.He note improvement with bowel rest and NPO status.Pt resides with grandparents.His mother lives in [place].He is uninsured and unemployed. Per pt, [facility] financial counselors have provided him with PAP forms. CM explained role during his stay He made need financial assistance with prescriptions No other needs were identified at this time. Please page the case finisher regarding utilization review issues or if discharge planning problems or barriers arise. Jyoti Méndez RN BSN CCM [id number] * Johann Duncan MD - 03/27/2009 0714 EDT [facility] Progress Note Admit Date: 03/25/2009 LOS: 2 days CC: Diverticulitis of Colon with Perforation Subjective: 24-Hour Events: No acute events overnight. Passing flatus and + BM yesterday. Pain improved. Review of Systems Negative except above Meds Patient is currently taking acetaminophen, ondansetron (pf), ciprofloxacin, metronidazole, dextrose5% and 0.45% nacl with kcl 20 meq/l, naloxone, and morphine in ns 100 mg/100 ml. Objective: Vitals: Temp (24hrs), Av.7 ??C (99.9 ??F), Min:37.1 ??C (98.8 ??F), Max:38.3 ??C (100.9 ??F) Blood pressure 127/77, pulse 101, temperature 37.1 ??C (98.8 ??F), temperature source Tympanic, resp. rate 16, SpO2 96%. Patient is on room air Intake/Output Summary (Last 24 hours) at 03/27/09 0717 Last data filed at 03/27/09 0500 Gross per 24 hour Intake 3449.5 ml Output 1025 ml Net 2424.5 ml I/O for Current Shift: Exam General appearance: A&Ox3, NAD Lungs: CTAB Heart: RRR Abdomen: Obese, soft, +bs, distended but not tympanitic, mildLLQ tenderness no rebound, no diffuse peritonitis Extremities: WWP, no edema Data Review CBC: Lab Results Component Value Date/Time ??? WBC 14.44 03/27/09 5:59 AM ??? RBC 3.36 03/27/09 5:59 AM ??? HGB 11.7 03/27/09 5:59 AM ??? HCT 33.1 03/27/09 5:59 AM ??? PLT 219 03/27/09 5:59 AM BMP: Lab Results Component Value Date/Time ??? NA 139 03/26/09 6:47 AM ??? K 3.8 03/26/09 6:47 AM ??? CL 103 03/26/09 6:47 AM ??? CO2 27 03/26/09 6:47 AM ??? BUN 13 03/26/09 6:47 AM ??? CREATININE 1.00 03/26/09 6:47 AM Assessment: Ashlyn Mendez is a(n) 34 y.o. old male who was admitted for Diverticulitis of Colon with Perforation on 03/25/2009. He is HD#3, doing well on IV antibiotics, NPO. Afebrile. Pain and exam continue toshow interval improvement. Patient Active Hospital Problem List: *Diverticulitis of Colon with Perforation (03/25/2009) Obesity (03/25/2009) Plan: Cont abx: IV cipro, flagyl Cont morphine INTERDISCIPLINARY PROFESSOR for pain NPO except ice chips MIVF Consider NGT if patient develops nausea/vomiting and/or worsening distension Ambulate MIGUELANGEL ELDRIDGE MD [facility] #[id number] 03/27/2009 7:17 AM Patient examined. Above note reviewed. Agree with findings. Pain is improving, still has mild LLQ pain to palpation. No guarding or rebound. Will continue NPO today, IV antibiotics, Ambulate. Johann Duncan MD * Johann Duncan MD - 03/26/2009 0115 EDT [facility] Progress Note Admit Date: 03/25/2009 LOS: 1 day CC: Diverticulitis of Colon with Perforation Subjective: 24-Hour Events: Transferred from OSH with perforated sigmoid diverticulitis, NPO overnight, Cipro/Flagyl started, much more comfortable with INTERDISCIPLINARY PROFESSOR for pain control overnight, +flatus w/relief, no BM yet Review of Systems Negative except above Meds Patient is currently taking acetaminophen, ondansetron (pf), ciprofloxacin, metronidazole, dextrose5% and 0.45% nacl with kcl 20 meq/l, ciprofloxacin, sodium chloride 0.9 % 1,000 mL BOLUS, naloxone,morphine in ns 100 mg/100 ml, morphine, and morphine in ns 100 mg/100 ml. Objective: Vitals: Temp (24hrs), Av.9 ??C (98.5 ??F), Min:36.3 ??C (97.3 ??F), Max:37.8 ??C (100 ??F) Blood pressure 123/69, pulse 104, temperature 37.8 ??C (100 ??F), temperature source Tympanic, resp. rate 20, SpO2 96%. Patient is on room air Intake/Output Summary (Last 24 hours) at 03/26/09 05 Last data filed at 03/26/09 05 Gross per 24 hour Intake 3479.5 ml Output 800 ml Net 2679.5 ml I/O for Current Shift: In: 1342.5 (1142.5 I.V.) Out: 350 (350 Urine) Exam General appearance: A&Ox3, NAD Lungs: CTAB Heart: RRR Abdomen: Obese, soft, +bs, distended but not tympanitic, moderate LLQ tenderness (palpation in other quadrants causes mild-moderate LLQ pain), no longer tender to percussion over LLQ, no rebound, no diffuse peritonitis Extremities: WWP, no edema Data Review CBC: Lab Results Component Value Date/Time ??? WBC 20.44 03/25/09 6:06 PM ??? RBC 3.80 03/25/09 6:06 PM ??? HGB 12.9 03/25/09 6:06 PM ??? HCT 37.0 03/25/09 6:06 PM ??? PLT 219 03/25/09 6:06 PM BMP: Lab Results Component Value Date/Time ??? NA 138 03/25/09 6:06 PM ??? K 3.6 03/25/09 6:06 PM ??? CL 104 03/25/09 6:06 PM ??? CO2 26 03/25/09 6:06 PM ??? BUN 13 03/25/09 6:06 PM ??? CREATININE 1.00 03/25/09 6:06 PM Assessment: Ashlyn Mendez is a(n) 34 y.o. old male who was admitted for Diverticulitis of Colon with Perforation on 03/25/2009. He is HD#2, doing well on IV antibiotics, NPO. Afebrile. Pain and exam show interval improvement. Patient Active Hospital Problem List: *Diverticulitis of Colon with Perforation (03/25/2009) Obesity (03/25/2009) Plan: Cont abx: IV cipro, flagyl Cont morphine INTERDISCIPLINARY PROFESSOR for pain Follow fever curve, abd exam->patient may require surgery if condition deteriorates NPO except ice chips MIVF Consider NGT if patient develops nausea/vomiting and/or worsening distension MARTIN MOISE MD [facility] #[id number] 03/26/2009 5:57 AM Patient examined, above note reviewed. Agree with findings. Pain is improved this am. Tender only in LLQ, with much less pain to palpation, Had BM and flatus. Overall improving. Plan is to continue current treatment with antibiotics and bowel rest. Johann Duncan MD documented in this encounter H&P Notes * Johann Duncan MD - 03/25/2009 1528 EDT [facility] CC: Perforated diverticulitis Admit: 03/25/2009 Subjective: Ashlyn Mendez is a 34M with PMH remarkable for morbid obesity and occasional GERD symptoms transferred from [facility] ([facility]) for perforated sigmoid diverticulitis. Patient was in usual state of good health until 2 days ago when he developed cramp abdominal pain. The pain was located mostly over his LLQ, mostly 4-6/10, but with frequent spikes to 10/10. He also noted fever and obstipation. His last BM was 4 days ago (except for a few very small non-bloody loose stools 2 days ago). Last night,his symptoms failed to resolve, so he went to [facility] ED. Evaluation last night was remarkable for fever 38.9, LLQ abdominal pain and distension. His WBC was elevated at 21. CT Ab/Pelv showed diffuse wall thickening and edema in the distal colon with adjacent fluid and extraperitoneal gas with pneumoperitoneum suggesting occult colonic perforation related to colitis. The recommendation at that time was for partial colectomy with diverting colostomy, but the patient wished to avoid a colostomy. Therefore, after receiving a dose of IV antibiotics, the patient was transferred to [facility] for further care. On arrival at [facility], patient was afebrile and hemodynamically stable, although his abdominal symptoms continued. He gave additional history of 2 episodes of nausea and vomiting two days ago (with one episode of vomiting a small amount of blood). However, he denies nausea at this time. His primary complaint is his ongoing intermittent severe crampy LLQ pain and continued obstipation. At this time, he specifically denies fevers, chills, sore throat, chest pain, SOB, nausea, vomiting, dysuria, or swelling/pain in his extremities. PMH includes morbid obesity and GERD. PSH includes knee arthroscopy. Patient Active Problem List Diagnoses Date Noted Diverticulitis of Colon with Perforation [562.11Q] 03/25/2009 Obesity [278.00M] 03/25/2009 Past Medical History Diagnosis Date ??? Obesity ??? Dental Abscess Past Surgical History Procedure Date ??? Knee arthroscopy Medications None Allergies No Known Allergies History Substance Use Topics ??? Tobacco Use: Quit ??? Alcohol Use: Yes Family History Grandfather had diverticulitis. Father from acute leukemia. No personal or family history of inflammatory bowel disease. Review of Systems Pertinent items are noted in HPI. Objective: Patient Vitals in the past 8 hrs: BP Temp Temp src Pulse Resp SpO2 Height Wt - Scale 03/25/09 1402 124/75 mmHg 36.3 ??C (97.3 ??F) Tympanic 115 20 96 % - - No intake or output data in the 24 hours ending 03/25/09 1531 General appearance: A&Ox3, intermittent distress when pain spikes Lungs: CTAB Heart: RRR Abdomen: Obese, soft, +bs, distended but not tympanitic, moderate-severe LLQ pain on palpation (palpation in other quadrants causes mild-moderate LLQ pain), tender to percussion over LLQ, no rebound,no diffuse peritonitis Extremities: WWP, no edema Data Review From OSH: WBC 21.25 HCT 39.8 PLT 265 Glu 126 Na 135 K 3.3 Cl 101 CO2 24.5 BUN 19 Cr 1.2 AST 13 ALT 37 TBili 0.[address]Ph[address] Ab/Pelv (from OSH) (03/25/09): Diffuse wall thickening and edema in the distal colon with adjacent fluid and extraperitoneal gas with pneumoperitoneum suggesting occult colonic perforation relatedto colitis. ([facility] official read) Assessment: 34M with PMH significant for morbid obesity transferred to [facility] for perforated sigmoid diverticulitis. Pain/tenderness focused in the LLQ and patient currently afebrile and hemodynamically stable. CTconfirms perforated diverticulitis relatively limited to faviola-sigmoid region. Patient would like toattempt to avoid surgery and diverting colostomy if possible. Patient Active Hospital Problem List: *Diverticulitis of Colon with Perforation (03/25/2009) Obesity (03/25/2009) Plan: Admit [facility] ([facility]) Start abx: IV cipro, flagyl (ID approval received) IV pain control Follow fever curve, abd exam->patient may require surgery if condition deteriorates NPO except ice chips MIVF Consider NGT if patient develops nausea/vomiting and/or worsening distension OSH CT Ab/Pelv reviewed and taken to radiology for loading into PACS Plan discussed with Dr. Duncan. MARTIN MOISE MD [facility][id number] Patient examined on admission, 03/25/09. Above admit note reviewed. Agree with findings and plan. Patient has diverticulitis of sigmoid with localized peritonitis. Plan is to treat with IV antibiotics, npo and bowel rest. If condition worsens or does not improve will need surgery. Patient understands this plan. Johann Duncan MD documented in this encounter Miscellaneous Notes * Scanned Note-Null - Inpatient, Physician - 04/04/2009 1451 EDT * Scanned Note-Null - Inpatient, Physician - 04/04/2009 1451 EDT * Scanned Note-Null - Inpatient, Physician - 04/04/2009 1451 EDT * Plan of Care - Amaya Grullon RN - 03/26/2009 0402 EDT Problem: PAIN Goal: Patient's Pain/Discomfort Is Manageable Outcome: Met This Shift Patient using INTERDISCIPLINARY PROFESSOR appropriately and reports adequate pain control. Will continue to monitor. documented in this encounter Plan of Treatment Not on file documented as of this encounter Procedures Procedure Name Priority Date/Time Associated Diagnosis Comments COMPLETE BLOOD COUNT Routine 03/30/2009 7:25 EDT BUN Routine 03/30/2009 7:25 EDT CREATININE Routine 03/30/2009 7:25 EDT ELECTROLYTES Routine 03/30/2009 7:25 EDT GLUCOSE, GLUCOMETER Routine 03/30/2009 6 :52 EDT COMPLETE BLOOD COUNT Routine 03/29/2009 7:56 EDT BUN Routine 03/29/2009 7:56 EDT CREATININE Routine 03/29/2009 7:56 EDT ELECTROLYTES Routine 03/29/2009 7:56 EDT COMPLETE BLOOD COUNT Routine 03/28/2009 6:26 EDT BUN Routine 03/28/2009 6:26 EDT CREATININE Routine 03/28/2009 6:26 EDT ELECTROLYTES Routine 03/28/2009 6:26 EDT COMPLETE BLOOD COUNT Routine 03/27/2009 5:59 EDT BUN Routine 03/27/2009 5:59 EDT CREATININE Routine 03/27/2009 5:59 EDT ELECTROLYTES Routine 03/27/2009 5:59 EDT COMPLETE BLOOD COUNT Routine 03/26/2009 6:47 EDT BUN Routine 03/26/2009 6:47 EDT CREATININE Routine 03/26/2009 6:47 EDT ELECTROLYTES Routine 03/26/2009 6:47 EDT SCREENING GLUCOSE Routine 03/25/2009 18: 06 EDT PTT Routine 03/25/2009 18:06 EDT PROTIME Routine 03/25/2009 18:06 EDT COMPLETE BLOOD COUNT AND DIFFERENTIAL Routine 03/25/2009 18:06 EDT BUN Routine 03/25/2009 18:06 EDT CREATININE Routine 03/25/2009 18:06 EDT ELECTROLYTES Routine 03/25/2009 18:06 EDT documented in this encounter Results * (ABNORMAL) HEMAGRAM (03/30/2009 7:25 EDT) WBC 7.92 4.0 - 10.4 K/cmm [facility] RBC 3.84(L) 4.36 - 5.78 M/cmm [facility] Hemoglobin 13.1(L) 13.8 - 17.3 gm/dl [facility] HCT 37.5(L) 39.5 - 50.2 % [facility] MCV 97(H) 81 - 95 fl [facility] MCH 34.0(H) 27.6 - 33.0 pg [facility] MCHC 34.9 32.8 - 36.4 gm/dl [facility] PLT 359(H) 141 - 320 K/cmm [facility] RDW-CV 12.9 11.8 - 14.1 % [facility] Blood specimen (specimen) 03/30/2009 7:25 EDT 03/30/2009 7:45 EDT us Martin Moise MD HEMATOLOGY & PF4 ORDERAB LES Final Result Performing Organization Address [facility] de Phone Number [facility] [address] [place] [address] * ELECTROLYTES (03/30/2009 7:25 EDT) Sodium 138 136 - 145 mEq/L [facility] Potassium 3.9 3.5 - 5.0 mEq/L [facility] Chloride 106 96 - 110 mEq/L [facility] CO2 26 24 - 32 mEq/L [facility] Blood specimen (specimen) 03/30/2009 7:25 EDT 03/30/2009 7:45 EDT us Martin Moise MD CHEMISTRY & BLOOD GAS OR DERABLES Final Result Performing Organization Address [facility] de Phone Number [facility] [address] [place] [address] * CREATININE (03/30/2009 7:25 EDT) Creatinine 0.81 0.7 - 1.5 mg/dl [facility] GFR, Calculated >60 ml/min/1.7 3m2 [facility] Blood specimen (specimen) 03/30/2009 7:25 EDT 03/30/2009 7:45 EDT us Martin Moise MD CHEMISTRY & BLOOD GAS OR DERABLES Final Result Performing Organization Address [facility] de Phone Number [facility] [address] [place] [address] * (ABNORMAL) BUN (03/30/2009 7:25 EDT) BUN 7(L) 10 - 26 mg/dl [facility] Blood specimen (specimen) 03/30/2009 7:25 EDT 03/30/2009 7:45 EDT us Martin Moise MD CHEMISTRY & BLOOD GAS OR DERABLES Final Result Performing Organization Address [facility]/ZIP Co de Phone Number [facility] [address] [place] [address] * GLUCOSE, GLUCOMETER (03/30/2009 6:52 EDT) Pathologist [facility] Glucose, Fingerstick 95 70 - 100 mg/dl [facility] Manager [employer] ID [id number] Test Performed by Nursing Services [facility] 03/30/2009 6:52 EDT 03/30/2009 7:10 EDT us Johann Duncan MD CHEMISTRY & BLOOD GAS ORDERABLE S Final Result Performing Organization Address [facility] de Phone Number [facility] [address] [place] [address] * (ABNORMAL) HEMAGRAM (03/29/2009 7:56 EDT) Pathologist [facility] WBC 9.76 4.0 - 10.4 K/cmm [facility] RBC 3.67(L) 4.36 - 5.78 M/cmm [facility] Hemoglobin 12.4(L) 13.8 - 17.3 gm/dl [facility] HCT 35.4(L) 39.5 - 50.2 % [facility] MCV 97(H) 81 - 95 fl [facility] MCH 33.9(H) 27.6 - 33.0 pg [facility] MCHC 35.1 32.8 - 36.4 gm/dl [facility] PLT 341(H) 141 - 320 K/cmm [facility] RDW-CV 12.7 11.8 - 14.1 % [facility] Blood specimen (specimen) 03/29/2009 7:56 EDT 03/29/2009 7:58 EDT us Martin Moise MD HEMATOLOGY & PF4 ORDERAB LES Final Result Performing Organization Address [facility] Co de Phone Number [facility] [address] [place] [address] * ELECTROLYTES (03/29/2009 7:56 EDT) Pathologist [facility] Sodium 137 136 - 145 mEq/L [facility] Potassium 3.9 3.5 - 5.0 mEq/L [facility] Chloride 104 96 - 110 mEq/L [facility] CO2 25 24 - 32 mEq/L [facility] Blood specimen (specimen) 03/29/2009 7:56 EDT 03/29/2009 7:58 EDT us Martin Moise MD CHEMISTRY & BLOOD GAS OR DERABLES Final Result Performing Organization Address [facility] Co de Phone Number [facility] [address] [place] [address] * CREATININE (03/29/2009 7:56 EDT) Pathologist [facility] Creatinine 0.74 0.7 - 1.5 mg/dl [facility] GFR, Calculated >60 ml/min/1.7 3m2 [facility] Blood specimen (specimen) 03/29/2009 7:56 EDT 03/29/2009 7:58 EDT us Martin Moise MD CHEMISTRY & BLOOD GAS OR DERABLES Final Result Performing Organization Address [facility] de Phone Number [facility] [address] [place] [address] * (ABNORMAL) BUN (03/29/2009 7:56 EDT) BUN 8(L) 10 - 26 mg/dl [facility] Blood specimen (specimen) 03/29/2009 7:56 EDT 03/29/2009 7:58 EDT Martin Moise MD CHEMISTRY & BLOOD GAS OR DERABLES Final Result Performing Organization Address [facility] de Phone Number [facility] [address] [place] [address] * (ABNORMAL) HEMAGRAM (03/28/2009 6:26 EDT) WBC 11.67(H) 4.0 - 10.4 K/cmm [facility] RBC 3.43(L) 4.36 - 5.78 M/cmm [facility] Hemoglobin 11.8(L) 13.8 - 17.3 gm/dl [facility] HCT 33.4(L) 39.5 - 50.2 % [facility] MCV 97(H) 81 - 95 fl [facility] MCH 34.3(H) 27.6 - 33.0 pg [facility] MCHC 35.2 32.8 - 36.4 gm/dl [facility] PLT 281 141 - 320 K/cmm [facility] RDW-CV 13.0 11.8 - 14.1 % [facility] Blood specimen (specimen) 03/28/2009 6:26 EDT 03/28/2009 7:40 EDT us Martin Moise MD HEMATOLOGY & PF4 ORDERAB LES Final Result Performing Organization Address [facility] Co de Phone Number [facility] [address] [place] [address] * ELECTROLYTES (03/28/2009 6:26 EDT) Sodium 137 136 - 145 mEq/L [facility] Potassium 3.8 3.5 - 5.0 mEq/L [facility] Chloride 103 96 - 110 mEq/L [facility] CO2 27 24 - 32 mEq/L [facility] Blood specimen (specimen) 03/28/2009 6:26 EDT 03/28/2009 7:40 EDT us Martin Moise MD CHEMISTRY & BLOOD GAS OR DERABLES Final Result Performing Organization Address [facility] Co de Phone Number [facility] [address] [place] [address] * CREATININE (03/28/2009 6:26 EDT) Creatinine 0.88 0.7 - 1.5 mg/dl [facility] GFR, Calculated >60 ml/min/1.7 3m2 [facility] Blood specimen (specimen) 03/28/2009 6:26 EDT 03/28/2009 7:40 EDT us Martin Moise MD CHEMISTRY & BLOOD GAS OR DERABLES Final Result Performing Organization Address [facility] de Phone Number [facility] [address] [place] [address] * BUN (03/28/2009 6:26 EDT) BUN 11 10 - 26 mg/dl [facility] Blood specimen (specimen) 03/28/2009 6:26 EDT 03/28/2009 7:40 EDT us Martin Moise MD CHEMISTRY & BLOOD GAS OR DERABLES Final Result Performing Organization Address [facility] de Phone Number [facility] [address] [place] [address] * (ABNORMAL) HEMAGRAM (03/27/2009 5:59 EDT) WBC 14.44(H) 4.0 - 10.4 K/cmm [facility] RBC 3.36(L) 4.36 - 5.78 M/cmm [facility] Hemoglobin 11.7(L) 13.8 - 17.3 gm/dl [facility] HCT 33.1(L) 39.5 - 50.2 % [facility] MCV 98(H) 81 - 95 fl [facility] MCH 34.7(H) 27.6 - 33.0 pg [facility] MCHC 35.3 32.8 - 36.4 gm/dl [facility] PLT 219 141 - 320 K/cmm [facility] RDW-CV 13.2 11.8 - 14.1 % [facility] Blood specimen (specimen) 03/27/2009 5:59 EDT 03/27/2009 6:35 EDT us Martin Moise MD HEMATOLOGY & PF4 ORDERAB LES Final Result Performing Organization Address [facility] de Phone Number [facility] [address] [place] [address] * ELECTROLYTES (03/27/2009 5:59 EDT) Sodium 136 136 - 145 mEq/L [facility] Potassium 3.7 3.5 - 5.0 mEq/L [facility] Chloride 104 96 - 110 mEq/L [facility] CO2 27 24 - 32 mEq/L [facility] Blood specimen (specimen) 03/27/2009 5:59 EDT 03/27/2009 6:35 EDT us Martin Moise MD CHEMISTRY & BLOOD GAS OR DERABLES Final Result Performing Organization Address [facility] Co de Phone Number [facility] [address] [place] [address] * CREATININE (03/27/2009 5:59 EDT) Creatinine 0.89 0.7 - 1.5 mg/dl [facility] GFR, Calculated >60 ml/min/1.7 3m2 [facility] Blood specimen (specimen) 03/27/2009 5:59 EDT 03/27/2009 6:35 EDT us Martin Moise MD CHEMISTRY & BLOOD GAS OR DERABLES Final Result Performing Organization Address [facility] Co de Phone Number [facility] [address] [place] [address] * BUN (03/27/2009 5:59 EDT) BUN 12 10 - 26 mg/dl [facility] Blood specimen (specimen) 03/27/2009 5:59 EDT 03/27/2009 6:35 EDT us Martin Moise MD CHEMISTRY & BLOOD GAS OR DERABLES Final Result Performing Organization Address [facility] Co de Phone Number [facility] [address] [place] [address] * (ABNORMAL) HEMAGRAM (03/26/2009 6:47 EDT) Pathologist [facility] WBC 15.94(H) 4.0 - 10.4 K/cmm [facility] RBC 3.68(L) 4.36 - 5.78 M/cmm [facility] Hemoglobin 12.6(L) 13.8 - 17.3 gm/dl [facility] HCT 36.0(L) 39.5 - 50.2 % [facility] MCV 98(H) 81 - 95 fl [facility] MCH 34.2(H) 27.6 - 33.0 pg [facility] MCHC 34.9 32.8 - 36.4 gm/dl [facility] PLT 219 141 - 320 K/cmm [facility] RDW-CV 13.4 11.8 - 14.1 % [facility] Blood specimen (specimen) 03/26/2009 6:47 EDT 03/26/2009 7:43 EDT us Martin Moise MD HEMATOLOGY & PF4 ORDERAB LES Final Result Performing Organization Address [facility] Co de Phone Number [facility] [address] [place] [address] * ELECTROLYTES (03/26/2009 6:47 EDT) Pathologist [facility] Sodium 139 136 - 145 mEq/L [facility] Potassium 3.8 3.5 - 5.0 mEq/L [facility] Chloride 103 96 - 110 mEq/L [facility] CO2 27 24 - 32 mEq/L [facility] Blood specimen (specimen) 03/26/2009 6:47 EDT 03/26/2009 7:43 EDT Martin Moise MD CHEMISTRY & BLOOD GAS OR DERABLES Final Result Performing Organization Address [facility] Co de Phone Number [facility] [address] [place] [address] * CREATININE (03/26/2009 6:47 EDT) Pathologist [facility] Creatinine 1.00 0.7 - 1.5 mg/dl [facility] GFR, Calculated >60 ml/min/1.7 3m2 [facility] Blood specimen (specimen) 03/26/2009 6:47 EDT 03/26/2009 7:43 EDT us Martin Moise MD CHEMISTRY & BLOOD GAS OR DERABLES Final Result Performing Organization Address [facility] Co de Phone Number [facility] [address] [place] [address] * BUN (03/26/2009 6:47 EDT) BUN 13 10 - 26 mg/dl [facility] Blood specimen (specimen) 03/26/2009 6:47 EDT 03/26/2009 7:43 EDT us Martin Moise MD CHEMISTRY & BLOOD GAS OR DERABLES Final Result Performing Organization Address [facility] de Phone Number [facility] [address] [place] [address] * (ABNORMAL) HEMAGRAM AND DIFFERENTIAL (03/25/2009 18:06 EDT) WBC 20.44(H) 4.0 - 10.4 K/cmm [facility] RBC 3.80(L) 4.36 - 5.78 M/cmm [facility] Hemoglobin 12.9(L) 13.8 - 17.3 gm/dl [facility] HCT 37.0(L) 39.5 - 50.2 % [facility] MCV 97(H) 81 - 95 fl [facility] MCH 33.8(H) 27.6 - 33.0 pg [facility] MCHC 34.7 32.8 - 36.4 gm/dl [facility] PLT 219 141 - 320 K/cmm [facility] RDW-CV 12.9 11.8 - 14.1 % [facility] Neutrophils 95.0(H) 45.5 - 79.7 % [facility] Lymphocytes 2.0(L) 15.0 - 46.8 % [facility] Monocytes 3.0 1.8 - 12.0 % [facility] ABS Neutrophils 19.42(H) 2.20 - 8.85 K/cmm [facility] ABS Lymphs 0.41(L) 1.09 - 3.30 K/cmm [facility] ABS Monocytes 0.61 0.1 - 0.8 K/cmm [facility] RBC Morphology Normal [facility] Type of Diff: Manual [facility] Blood specimen (specimen) 03/25/2009 18:06 EDT 03/25/2009 18:14 EDT Johann Duncan MD PACKAGES & DNA PROBE ORDERABLES Final Result Performing Organization Address [facility] de Phone Number [facility] [address] [place] [address] * (ABNORMAL) SCREENING GLUCOSE (03/25/2009 18:06 EDT) Pathologist [facility] Glucose, Screening 130(H) 70 - 100 mg/dl [facility] Blood specimen (specimen) 03/25/2009 18:06 EDT 03/25/2009 18:14 EDT Johann Duncan MD CHEMISTRY & BLOOD GAS ORDERABLE S Final Result Performing Organization Address [facility] de Phone Number [facility] [address] [place] [address] * PTT (03/25/2009 18:06 EDT) Pathologist [facility] PTT 34 20 - 35 secs [facility] Comment:Therapeutic Heparin range: 60-100 seconds Blood specimen (specimen) 03/25/2009 18:06 EDT 03/25/2009 18:14 EDT Johann Duncan MD HEMATOLOGY & PF4 ORDERABLES Fin al Result Performing Organization Address [facility] de Phone Number [facility] [address] [place] [address] * (ABNORMAL) PROTIME (03/25/2009 18:06 EDT) Pro Time 16.9(H) 12.0 - 15.0 secs [facility] I.N.R. 1.3(H) 0.9 - 1.1 Ratio [facility] Comment: Moderate Intensity Coumadin INR = 2.0-3.0 Adjustments in anticoagulant therapy dose should be based upon the INR and NOT the Pro Time. Blood specimen (specimen) 03/25/2009 18:06 EDT 03/25/2009 18:14 EDT Johann Duncan MD HEMATOLOGY & PF4 ORDERABLES Fin al Result Performing Organization Address [facility] Co de Phone Number [facility] [address] [place] [address] * CREATININE (03/25/2009 18:06 EDT) Creatinine 1.00 0.7 - 1.5 mg/dl [facility] GFR, Calculated >60 ml/min/1.7 3m2 [facility] Blood specimen (specimen) 03/25/2009 18:06 EDT 03/25/2009 18:14 EDT Johann Duncan MD CHEMISTRY & BLOOD GAS ORDERABLE S Final Result Performing Organization Address [facility] de Phone Number [facility] [address] [place] [address] * BUN (03/25/2009 18:06 EDT) BUN 13 10 - 26 mg/dl [facility] Blood specimen (specimen) 03/25/2009 18:06 EDT 03/25/2009 18:14 EDT Johann Duncan MD CHEMISTRY & BLOOD GAS ORDERABLE S Final Result Performing Organization Address [facility] de Phone Number [facility] [address] [place] [address] * ELECTROLYTES (03/25/2009 18:06 EDT) Sodium 138 136 - 145 mEq/L [facility] Potassium 3.6 3.5 - 5.0 mEq/L [facility] Chloride 104 96 - 110 mEq/L [facility] CO2 26 24 - 32 mEq/L [facility] Blood specimen (specimen) 03/25/2009 18:06 EDT 03/25/2009 18:14 EDT us Johann Duncan MD CHEMISTRY & BLOOD GAS ORDERABLE S Final Result [facility] [address] [place] [address] documented in this encounter Visit Diagnoses Diagnosis Diverticulitis of colon with perforation- Primary Diverticulitis of colon (without mention of hemorrhage) Obesity Obesity, unspecified documented in this encounter Administered Medications Inactive Administered Medications - up to 3 most recent administrations Medication Order MAR Action Action Date Dose Rate Site acetaminophen (TYLENOL) tablet 650 mg 650 mg, oral, EVERY 6 HOURS PRN, Starting on 03/25/09 at 1438, Until [place] 03/30/09 at 1834, Pain, Routine Given 03/29/2009 22:40 EDT 650 mg Given 03/29/2009 13:19 EDT 650 mg ciprofloxacin (CIPRO) IVPB 400 mg/ 200 mL 400 mg, intravenous, Administer over 60 Minutes, EVERY 12 HOURS (2 times per day), First dose on 03/25/09 at 2100, Until Discontinued, Controlled antibiotic, has ID approved? Yes, Routine Given 03/30/2009 9:36 EDT 400 mg Given 03/29/2009 21:00 EDT 400 mg Given 03/29/2009 9:59 EDT 400 mg ciprofloxacin (CIPRO) IVPB 400 mg/ 200 mL 400 mg, intravenous, Administer over 60 Minutes, NOW X1, 1 dose, On 03/25/09 at 1515, Controlled antibiotic, has ID approved? No: Provide Comment, STAT Given 03/25/2009 16:45 EDT 400 mg dextrose 5 % and 0.45 % NaCl with KCl 20 mEq/L infusion at 150 mL/hr, intravenous, CONTINUOUS, Starting on 03/25/09 at 1500, Until 03/27/09 at 0938, Routine Rate Documented 03/27/2009 0:00 EDT 150 m L/hr New Bag 03/26/2009 15:47 EDT 150 mL/hr New Bag 03/26/2009 8:12 EDT 150 mL/hr dextrose 5 % and 0.9 % NaCl with KCl 20 mEq/L infusion at 75 mL/hr, intravenous, CONTINUOUS, Starting on 03/27/09 at 1000, Until Fri03/29/09 at 0655, Routine Rate Documented 03/29/2009 5:44 EDT 75 mL/hr Rate Documented 03/29/2009 0:00 EDT 75 mL/hr Rate Documented 03/28/2009 22:59 EDT 75 mL/hr metronidazole (FLAGYL) IVPB 500 mg 500 mg, intravenous, Administer over 30 Minutes, EVERY 8 HOURS (3 times per day), First dose on 03/25/09 at 1600, Until Discontinued, Routine Given 03/30/2009 8:30 EDT 500 mg Given 03/29/2009 23:53 EDT 500 mg Given 03/29/2009 16:00 EDT 500 mg morphine in NS 100 mg/100 mL INTERDISCIPLINARY PROFESSOR intravenous, INTERDISCIPLINARY PROFESSOR, Starting on 03/25/09 at 1700, Until Fri03/29/09 at 0655, INTERDISCIPLINARY PROFESSOR Dose: 1 mg LOCKOUT Interval: 15 minutes ONE HOUR Dose Limit: 4 mg BOLUS/LOADING Dose: 2 mg q 5 -10 minutes PRN X 3, Routine Rate Documented 03/29/2009 5:44 EDT mL/hr Rate Documented 03/28/2009 19:55 EDT mL/hr Rate Documented 03/28/2009 16:46 EDT mL/hr morphine injection 1-2 mg 1-2 mg, intravenous, EVERY 3 HOURS PRN, Starting on 03/25/09 at 1438, Until 03/25/09 at 1631, Pain, Routine Given 03/25/2009 15:45 EDT 2 mg ondansetron (PF) (ZOFRAN) 4 mg/2 mL injection 4 mg 4 mg, intravenous, EVERY 4 HOURS PRN, Starting on 03/25/09 at 1438, Until [place] 03/30/09 at 1834, Nausea, Routine Given 03/30/2009 7:00 EDT 4 mg sodium chloride 0.9 % 1,000 mL BOLUS 1,000 mL, intravenous, NOW X1, 1 dose, On 03/25/09 at 1700, Routine Given 03/25/2009 18:30 EDT 1,000 mL documented in this encounter Active and Recently Administered Medications Times are shown in EDT. Scheduled Medication Order 03/28/2009 03/29/2009 03/30/2009 ciprofloxacin (CIPRO) IVPB 400 mg/ 200 mL (CANCELED) 400 mg, intravenous, Administer over 60 Minutes, EVERY 12 HOURS (2 times per day), First dose on 03/25/09 at 2100, Until Discontinued, Controlled antibiotic, has ID approved? Yes, Routine 0952 (Given - Provider: Marvin Dawn RN)2041 (Given - Provider: Nneka New RN) 0959 (Given - Provider: Marvin Dawn RN)2100 (Given - Provider: Nneka New RN) 0936 (Given - Provider: Perry Arevalo) metronidazole (FLAGYL) IVPB 500 mg (CANCELED) 500 mg, intravenous, Administer over 30 Minutes, EVERY 8 HOURS (3 times per day), First dose on 03/25/09 at 1600, Until Discontinued, Routine 0007 (Given - Provider: Adore Babb)0829 (Given - Provider: Marvin Dawn RN)1600 (Given - Provider: Pema Gaines, ANGEL) 0107 (Given - Provider: Nneka New RN)0800 (Given - Provider: Marvin Dawn RN)1600 (Given - Provider: Oumou Stephens)2353 (Given - Provider: Nneka New RN) 0830 (Given - Provider: Perry Arevalo)1600 (Due) Continuous Medication Order 03/28/2009 03/29/2009 03/30/2009 dextrose 5 % and 0.9 % NaCl with KCl 20 mEq/L infusion (CANCELED) at 75 mL/hr, intravenous, CONTINUOUS, Starting on 03/27/09 at 1000, Until Fri03/29/09 at 0655, Routine 0333 (New Bag - Provider: Adore Babb)1510 (New Bag - Provider: Bettye Newell RN)1603 (Rate Documented - Provider: Pema Gaines, ANGEL)1900 (Rate Documented - Provider: Nneka New RN)2259 (Rate Documented - Provider: Nneka New RN) 0000 (Rate Documented - Provider: Nneka New RN)0544 (Rate Documented - Provider: Nneka New RN) morphine in NS 100 mg/100 mL INTERDISCIPLINARY PROFESSOR (CANCELED) intravenous, INTERDISCIPLINARY PROFESSOR, Starting on 03/25/09 at 1700, Until 03/29/09 at 0655, INTERDISCIPLINARY PROFESSOR Dose: 1 mg LOCKOUT Interval: 15 minutes ONE HOUR Dose Limit: 4 mg BOLUS/LOADING Dose: 2 mg q 5 -10 minutes PRN X 3, Routine 0333 (Rate Documented - Provider: Adore Babb)0715 (Rate Documented - Provider: Adore Babb)1646 (Rate Documented - Provider: Pema Gaines RN)1955 (Rate Documented - Provider: Nneka New RN) 0544 (Rate Documented - Provider: Nneka New RN) PRN Medication Order 03/28/2009 03/29/2009 03/30/2009 acetaminophen (TYLENOL) tablet 650 mg (CANCELED) 650 mg, oral, EVERY 6 HOURS PRN, Starting on 03/25/09 at 1438, Until [place] 03/30/09 at 1834, Pain, Routine 1319 (Given - Provider: Perry Arevalo)2240 (Given - Provider: Nneka New RN) HYDROmorphone (DILAUDID) tablet 2-4 mg 2-4 mg, oral, EVERY 4 HOURS PRN, Starting on 03/29/09 at 0931, Until [place] 03/30/09 at 1834, Pain, Routine ondansetron (PF) (ZOFRAN) 4 mg/2 mL injection 4 mg (CANCELED) 4 mg, intravenous, EVERY 4 HOURS PRN, Starting on 03/25/09 at 1438, Until [place] 03/30/09 at 1834, Nausea, Routine 0700 (Given - Provid er: Nneka New RN - Comment: diaphoretic, emesis Dr Gong at bedside) documented in this encounter Orders Medications Ordered That Xu ht Not Have Been Administered Count Last Ordered Date First Ordered Date HYDROmorphone (DILAUDID) tablet 2-4 mg 1 oxycodone-acetaminophen (PER COCET) 5-325 mg per tablet 1 Tab 1 03/29/2009 morphine in NS 100 mg/100 mL INTERDISCIPLINARY PROFESSOR 1 03/25/20 09 naloxone (NARCAN) injection 0.1 mg 1 2008 Diet Count Last Ordered Date First Orde red Date DIET MODIFIED TEXTURE 1 03/29/2009 Nursing Count Last Ordered Date First Orde red Date MISCELLANEOUS NURSING CARE ORDER (SPECIFY) 1 03/25/2009 NOTIFY PHYSICIAN (SPECIFY) 2 03/25/2009 VITAL SIGNS 1 03/25/2009 IV Count Last Ordered Date First Orde red Date IV REQUEST 5 03/29/2009 03/25/2009 Admission Count Last Ordered Date First Orde red Date NOTIFY PPS OF DISCHARGE COMPLETE 1 03/30/20 09 ADMIT TO INPATIENT 1 03/25/2009 Discharge Count Last Ordered Date First Orde red Date DISCHARGE PATIENT 1 03/30/2009 documented in this encounter Care Teams Grid[employer] Machine Operator Relationship Specialty Start Date End Date None, Provider PCP - General 03/25/09 documented as of this encounter
[2024-05-27 20:42] LABS: Hemoglobin A1C 5.5 % (<5.7)
[2024-05-27 20:44] LABS: BUN 18 mg/dL (7-18); CREATININE 1.3 mg/dL (0.70-1.30); Calcium 8.2 mg/dL (8.5-10.1); Chloride 106 mmol/L (98-107); Estimated GFR 67.34 (mL/min/1.73m2); Glucose 93 mg/dL (74-106); Potassium 4.9 mmol/L (3.5-5.1); Sodium 139 mmol/L (136-145); Uric Acid 7.7 mg/dL (3.5-7.2)
== END 2024-05-27 15:23 | disposition home or self-care (01) ==
LOC: NCHCN 15:22
PROVIDERS: PCP Physician Assistant; Visit Provider Physician Assistant
DX: M10.9 Gout, unspecified (principal); R60.0 Localized edema; Z13.1 Encounter for screening for diabetes mellitus
CPT/HCPCS: 80048; 83036; 84550

== ENCOUNTER 2024-06-23 02:14 | Outpatient (CLI) | payer MEDICAID, SELFPAY ==
--- NOTE | 2024-06-23 13:30 | DI.US_ITS ---
APPROVED REPORT EXAM: Comprehensive 2D, Doppler, and color-flow Echocardiogram Patient Location: Out-Patient Relations Specialist: Ambar Mccormick RDCS (AE) Indications: Non rheumatic aortic valve stenosis Other Information Study Quality: Technically Difficult. Technically limited study due to body habitus. Conclusion Technically difficult study Concentric left ventricular hypertrophy. Ejection fraction is estimated to be 60%. Within the limit s of the study wall motion is normal Right atrium and right ventricle are not well-visualized Normal left atrial size Aortic valve is calcified, not well-visualized. Mean gradient is 40. Calculated aortic valve area 0 .9 cm??, moderate to severe aortic stenosis Ascending aorta measures 4.35 cm Wall motion Left Ventricle The left ventricle is normal size. The overall left ventricular systolic function appears normal. Mod erate concentric left ventricular hypertrophy. Regional wall motion is not well visualized but grossl y normal. There is no ventricular septal defect visualized. LVEF is 60%. Right Ventricle Right ventricle is not well visualized. Right ventricular systolic function could not be assessed. Atria The left atrium size is normal. Right atrium is not well visualized. The interatrial septum is intact with no evidence for an atrial septal defect. Aortic Valve Aortic valve is calcified. Number of aortic valve leaflets could not be assessed. Moderate aortic leslee nosis. Highest mean aortic valve gradient is 40.93_mmHg. Peak aortic valve gradient is 59.49mmHg. Ricky culated ELAINA by the continuity equation is .9_cm2. No aortic regurgitation is present. Mitral Valve The mitral valve is normal in structure. No evidence of mitral valve stenosis. Trace mitral regurgita tion. Tricuspid Valve The tricuspid valve is normal in structure. There is no tricuspid valve stenosis. Trace tricuspid reg urgitation. Pulmonic Valve The pulmonary valve is normal in structure. There is no pulmonic valvular stenosis. There is no pulmo sindy valvular regurgitation. Great Vessels Aortic root is mildly dilated. The ascending aorta is moderate to Aortic arch is normal in caliber.s everely dilated. IVC is normal in size and collapses >50% with inspiration. Pericardium There is no pericardial effusion. 2D Dimensions IVSD d PLAX 1.30 cm M: 0.6-1.2 Ao Root d 3.88 cm M: 3.1 - 3.7 LVPW d PLAX 1.33 cm M: 0.6 - 1.2 Ao Asc Diam d 4.35 cm M: 2.6 - 3.4 LVID d PLAX 5.10 cm M: 4.2 - 5.8 LVDs 3.44 cm M: 2.5 - 4.0 LV EF Teichholz 60.1 % FS 32.19 % LV EDV (Teich) 121.9 mL LV ESV (Teich) 48.6 mL M-Mode TAPSE 2.05 cm (M/F) >1.7 Auto EF LV EDV A4C 159.9 mL LV EDV A2C 115.4 mL LV EDV BP 134.5 mL LV ESV A4C 65.8 mL LV ESV A2C 50.4 mL LV ESV BP 56.8 mL LVEF(%) A4C 58.8 % LVEF(%) A2C 56.3 % LVEF(%) BP 57.8 % LV SV A4C 94.1 ml LV SV A2C 64.9 ml LV SV BP 77.7 ml LV CO A4C 6.6 L/min LV CO A2C 4.7 L/min LV CO BP 5.7 L/min HR A4C 69.91 BPM HR A2C 73.03 BPM LV EDV Index (BP) LA Volume LA Length A4C 5.0 cm LA Length A2C 5.7 cm LA Area A4C s 19.26 cm2 LA Area A2C s 18.27 cm2 LA Vol A4C A-L 62.87 mL LA Vol A2C A-L 49.72 mL LA Vol Biplane A-L 59.6 mL LA Vol/BSA A4C A-L LA Vol/BSA A2C A-L LA Vol/BSA BP A-L 22.2 mL/m2 LA Vol A4C MOD 59.6 mL LA Vol A2C MOD 46.6 mL LA Vol BP MOD 56.1 mL LV Diastology MV E' medial 0.082 (>0.07 m/s) MV E Vmax 0.71 (0.4-1.3 m/s) MV E/E' MED 8.65 (<14) MV A Vmax 0.70 (0.4-1.3 m/s) MV E' lateral 0.097 (>0.1 m/s) E/A Ratio 1.0 MV E/E' LAT 7.30 (<14) MV E' Average 0.090 m/s MV E/E'(average) 7.91 Aortic Valve AoV Vmax 3.86 m/s LVOT Vmax 1.04 m/s AoV Peak Grad 59.5 mmHg LVOT Peak Grad 4.3 mmHg AoV Area (Vmax) 0.82 cm2 LVOT VTI 0.267 m AoV VTI 0.943 m LVOT Mean Grad 2.9 mmHg AoV Mean Edmund. 3.10 m/s LVOT SV 81.16 mL AoV Mean Grad 40.9 mmHg LVOT Diam s 1.95 cm AoV Area (VTI) 0.86 cm2 AV Regurg Peak Gr. 59.49 mmHg Velocity Ratio 0.27 Mitral Valve MV DT 233 (160-240 msec) MV Vmax TIPS 0.74 m/s MV Mean Grad 0.9 (<2mmHg) MV VTI 0.207 m Pulmonary Valve PV Vmax 1.09 (0.5-1.5 m/s) RVOT Vmax 0.97 m/s PV Peak Grad 4.7 mmHg RVOT Peak Gr. 3.8 mmHg PV Mean Edmund 0.77 m/s RVOT VTI 0.240 m PV Mean Grad 2.7 mmHg RVOT Mean Gr. 2.1 mmHg Tricuspid Valve RA Pressure 3.00 mmHg TV S' 0.15 m/s
== END 2024-06-23 02:34 ==
PROVIDERS: PCP Physician Assistant; Visit Provider Physician Assistant
DX: I51.7 Cardiomegaly (principal)
CPT/HCPCS: 93306

== ENCOUNTER 2024-07-01 08:27 | Outpatient (CLI) | payer MEDICAID, SELFPAY ==
--- NOTE | 2024-07-01 08:15 | RT.EKG_ITS ---
APPROVED REPORT Exam: Resting ECG Reason for Exam: PAF Patient Location: O HR:80 bpm ECG Measurements Heart Rate 80 AXIS DC 171 P 18 QRSd 101 QRS 14 QT 379 T 35 QTc 438 Conclusion Sinus rhythm...normal P axis, V-rate 50- 99 Normal Electrocardiogram
== END 2024-07-01 08:28 | disposition home or self-care (01) ==
LOC: DI.CARD 08:28
PROVIDERS: PCP Physician Assistant; Visit Provider Internal Medicine Cardiovascular Disease
DX: I48.0 Paroxysmal atrial fibrillation (principal)
CPT/HCPCS: 93010

== ENCOUNTER 2025-04-24 16:29 | Observation (INO) | payer MEDICAID, SELFPAY ==
[2025-04-24] VITALS (22 sets, daily range): BP systolic 119–132; BP diastolic 88–95; PULSE 89–112; RESP 11–24; TEMP 36.6–37.2; O2SAT 91–98
--- NOTE | 2025-04-24 16:15 | RT.EKG_ITS ---
APPROVED REPORT Exam: Resting ECG Reason for Exam: [facility] Patient Location: E HR:98 bpm ECG Measurements Heart Rate 98 AXIS WA 162 P 3 QRSd 99 QRS 78 QT 364 T -20 QTc 464 Conclusion Sinus rhythm...normal P axis, V-rate 60- 99 Nonspecific T abnormalities, inferior leads...T <-0.10mV, II III aVF
--- NOTE | 2025-04-24 16:45 | DI.CT_ITS ---
Exam(s) CT BRAIN NECK CTA EXAM: CT BRAIN NECK CTA CLINICAL HISTORY: ams, left sided body numbness. TECHNIQUE: Imaging Protocol: Axial CT angiography was performed with multi- slice acquisition and multi-planar and/or 3D reconstructions. CONTRAST MATERIAL: Intravenous: Omnipaque 350 Contrast volume:structured data in ml COMPARISON: No exams were available for comparison FINDINGS: CTA Neck W: Aortic arch anatomy: The aortic arch anatomy is conventional and there is no significant stenosis at the origin of the great vessels off of the aortic arch. No intimal flap evident. Anterior circulation: Both common carotid arteries ascend with normal luminal diameters. At the level the carotid bulbs and proximal internal carotid arteries there is minimal if any plaque without hemodynamically significant stenosis evident on either side. Posterior circulation: Both vertebral arteries originate in conventional fashion off of the subclavian arteries and there is no obvious stenosis at the origin of the vertebral arteries. The left vertebral artery is dominant and ascends with a luminal diameter of 4.5 mm within the foramen transversarium. The right vertebral artery ascends with a luminal diameter of 3.5 mm within the foramen transversarium. Both vertebral arteries contribute to the formation of the basilar artery at the skull base. OTHER: There is disc space narrowing at C4-5, C5-6, and C6-7 levels. At C5-6 level there is significant posterior osteophytic ridging causing an element of central canal stenosis. CTA Brain W: Anterior circulation: Both internal carotid arteries are patent in the skull base-carotid canals as well as within the cavernous sinuses. The supraclinoid aspects of the ICAs are patent. Both A1 segments are patent with the right A1 segment being dominant. Both anterior cerebral arteries are patent and there is no evidence of aneurysm at the level of the anterior communicating artery. Both middle cerebral arteries are patent with no evidence of significant stenosis nor intraluminal thrombus. There also no aneurysms of these vessels. Posterior circulation: The basilar artery ascends without significant stenosis. Distally it gives off patent superior cerebellar arteries and above this level terminates as patent bilateral posterior cerebral arteries Above this level the basilar artery terminates as patent bilateral posterior cerebral arteries. There is no evidence of aneurysm at the tip of the basilar artery nor elsewhere in the [id number]. CT BRAIN: There is no evidence of intracranial hemorrhage, mass effect, or shift of midline structures. There are no extra-axial fluid collections. Ventricles are not enlarged or shifted. There are no ring enhancing lesions in the brain and no abnormal meningeal enhancement. IMPRESSION: 1. Patent carotid arteries in the neck. No hemodynamically significant stenosis. No evidence of dissection. 2. Patent vertebral arteries. No evidence of dissection. 3. Patent intracranial arteries. No evidence of vascular occlusion or dissection. 4. No acute intracranial findings. Preliminary V right report was reviewed RADIATION DOSE DELIVERED: 2,325.65mGy.cm Total DLP DATA REPOSITORY: All CT scans at this facility are submitted to the National Radiology Data Registry (NRDR) Dose Index Registry (DIR) with the [employer] (A[employer]). RADIATION OPTIMIZATION: All CT scans at this facility use at least one of these dose optimization techniques: automated exposure control; mA and/or kV adjustment per patient size (includes targeted exams where dose is matched to clinical indication); or iterative reconstruction.
[2025-04-24 16:53] LABS: BE (Venous) -1 mmol/L (-2-3); HCO3 (Venous) 23 mmol/L (23-28); O2 Sat (Venous) 81 %; TCO2 (Venous) 20 mmol/L (24-29); pCO2 (Venous) 34 mmHg (41-51); pO2 (Venous) 42 mmHg
--- NOTE | 2025-04-24 16:54 | W.ED.GENAD ---
Discharge Plan Disposition Patient Disposition: Admit to [facility] Condition: Stable Discharge Details Clinical Impression: Brain TIA Primary Care Provider: Ab Belle ED Provider: Lamont Ward Home Meds and New Rx's Prescriptions: No Action meloxicam 15 mg tablet 15 mg PO DAILY metoprolol succinate 50 mg tablet extended release 24 hr 50 mg PO DAILY omeprazole 20 mg capsule,delayed release(DR/EC) 40 mg PO DAILY hydroxyzine HCl 25 mg tablet 25 mg PO QHS PRN ibuprofen 800 mg Tablet 800 mg PO DAILY acetaminophen [Tylenol] 325 mg Tablet 325 - 650 mg PO PRN PRN allopurinol 100 mg Tablet 100 mg PO DAILY HPI General Mode of arrival: EMS. Date/Time Provider Initiated Documentation: 04/24/25 16:36. Limitations to Documentation: no limitations. Information obtained by: patient. History of Present Illness 50 year old M presents to the emergency department with the chief complaint of episodes of confusion/staring, left sided body numbness, described as moderate, Patient started experiencing this week(s) (3) and it has been intermittent and now resolved. No relieving factors improve symptom(s), No exacerbating factors reported . Patient notes denies chest pain and shortness of breath. Patient did receive the following treatments prior to arrival, none Related Data Home Medications Medication Instructions Recorded Confirmed ibuprofen 800 mg tablet 800 mg PO DAILY 03/26/18 07/01/24 acetaminophen 325 mg tablet 325 - 650 mg PO PRN PRN 02/03/19 07/01/24 (Tylenol) allopurinol 100 mg tablet 100 mg PO DAILY 07/13/19 07/01/24 meloxicam 15 mg tablet 15 mg PO DAILY 08/22/21 07/01/24 metoprolol succinate 50 mg 50 mg PO DAILY 08/22/21 07/01/24 tablet,extended release 24 hr hydroxyzine HCl 25 mg tablet 25 mg PO QHS PRN 06/02/24 07/01/24 omeprazole 20 mg capsule,delayed 40 mg PO DAILY 06/02/24 07/01/24 release Allergies Allergy/AdvReac Type Severity Reaction Status Date / Time No Known Allergies Allergy Verified 07/01/24 14:25 General Stated Complaint: CVA/TIA MIRELLA: 3 Review of Systems All systems reviewed & are unremarkable except as noted in HPI and below Constitutional Constitutional: Denies chills, Denies fever(s) and Denies weakness Cardiovascular Cardiovascular: Denies chest pain and Denies dyspnea Respiratory Respiratory: Denies cough and Denies dyspnea Gastrointestinal Gastrointestinal: Denies abdominal pain, Denies nausea and Denies vomiting Neurologic Neurologic: Denies weakness and Reports other (staring spells, left sided body numbness ) Exam Const General: no acute distress Orientation: alert [facility] Head: normal to inspection Ears: external ears normal General nose exam: external nose normal Mouth: moist mucous membranes Eyes General: appearance normal, both eyes and all related structures Neck Neck: normal visual inspection Resp Effort & Inspection: normal respiratory effort and able to speak in complete sentences Cardio Rate: regular rate Skin General skin exam: no rashes or lesions noted Neuro General: patient alert and patient oriented x3 Cranial Nerves: CN's II-XI intact bilaterally and PERRL Cognition: normal cognition Speech: speech normal Gait: normal gait Motor: muscle tone normal throughout Extrem General: normal to inspection Psych Mental Status: mental status grossly normal Course Vital Signs Vital signs: Vital Signs Temperature 37.2 C 04/24/25 16:32 Pulse 108 H 04/24/25 16:32 Respiratory Rate 18 04/24/25 16:32 Blood Pressure 129/92 H 04/24/25 16:32 Pulse Oximetry 97 04/24/25 16:32 Temperature 37.2 C 04/24/25 16:32 Pulse 108 H 04/24/25 16:32 Respiratory Rate 18 04/24/25 16:32 Respiratory Effort Normal 04/24/25 16:53 Respiratory Depth Normal 04/24/25 16:53 Respiratory Pattern Normal 04/24/25 16:53 Blood Pressure 129/92 H 04/24/25 16:32 Pulse Oximetry 97 04/24/25 16:32 Pain Level 4 04/24/25 16:32 Medical Decision Making 50-year-old male with a history of aortic stenosis, atrial fibrillation not on any anticoagulation comes in with 3 weeks of intermittent episodes of vomiting. he denies any weakness but states that during some of his episodes of left-sided body numbness and at one point he did bite his tongue. He currently denies any symptoms and has no weakness or issues speaking out. He is oriented x 4, has no drift in any extremities, bilateral 5 strength normal extremities. Given he bit his tongue this could be seizure related but with his history present symptoms and once daily y and his complaints of changes in speech and left-sided body numbness and concern for possible TIA. Will check a CT and CTA of his head and neck, also obtain troponins, CBC and CMP and monitor. Patient stable, labs and imaging show no significant concerning findings. Teleneurology evaluated the patient and they feel this is most likely a TIA but seizures cannot be excluded. They are recommending aspirin and Plavix as well as atorvastatin. They also recommend giving a loading dose of Keppra and starting him on twice daily 500 mg dosing until he can have a EEG at some point. Patient usually can feel when he is in A-fib and has not felt it in quite some time, neurology did not feel strongly about anticoagulation. Will discuss with hospitalist about admission for telemetry observation and MRI tomorrow. Differential Diagnosis Differential Diagnosis: tia, seizure, electrolyte abnormality Medical Records Medical records reviewed: Yes I reviewed the patient's medical records. Lab Data Lab results reviewed: Yes I reviewed the patient's lab results. ECG Data Attestation: I personally reviewed and interpreted this ECG (s) as follows: Prior ECG tracings: available for review Interpretation: sinus rate of 98 no stemi PFSH All Active Problems (Updated 04/24/25 @ 19:53 by Olvin Levi) DVT prophylaxis (Acute) Brain TIA (Acute) Severe obstructive sleep apnea in adult (Acute) 06/22/24 diagnosed with sleep study 02/27/2022, was fitted with full face mask for CPAP RH Ascending aorta dilatation (Acute) Aortic stenosis due to bicuspid aortic valve (Acute) Diverticulitis (Chronic) Knee pain, bilateral (Acute) Gout (Chronic) GERD (gastroesophageal reflux disease) (Chronic) Bilateral leg edema (Acute) Prediabetes (Acute) Paroxysmal atrial fibrillation (Acute) Shoulder pain, left (Acute) Mood disorder (Acute) Aortic stenosis (Chronic) Morbid obesity (Acute) Atrial fibrillation with RVR (Acute) Primary osteoarthritis of left knee (Acute) Primary osteoarthritis of right knee (Acute) Injected: 05/03/2019 Family History Paternal Grandfather Heart disease [place] Father Cancer lung [place] Social History Smoking/Tobacco Use Status: Former Tobacco Use Smoking risk assessment performed?: Yes Alcohol Intake: never Drug use: Rarely Substance use type: marijuana Household members: other Details: mother Housing: house Current gender identity: male Do you feel safe at home: Yes Do you feel safe in your relationship?: Yes
[2025-04-24 16:58] LABS: Abs Immature Grans 0.04 10^3/uL (0.0-0.06); HCT 42.6 % (40.0-50.0); HGB 14.9 g/dL (13.5-17.5); Immature Grans % 0.4 %; MCH 33.2 pg (27.0-33.0); MCHC 35.0 % (32.0-36.0); MCV 95 fL (80-95); MPV 8.9 fL (8.0-11.0); Platelet Count 245 10^3/uL (130-400); RBC 4.49 10^6/uL (4.36-5.78); RDW 11.9 % (11.8-14.1); RDW-SD 41.6 fL; WBC 9.07 10^3/uL (4.4-10.8)
[2025-04-24 17:07] LABS: INR 1.1 (0.9-1.1); PTT Activated 25.5 sec (20.6-30.2); Prothrombin Time 10.8 sec (9.1-11.1)
[2025-04-24 17:19] LABS: ALT 22 U/L (16-63); AST 19 U/L (15-37); Albumin 3.7 g/dL (3.4-5.0); Alkaline Phosphatase 87 U/L (46-116); Anion Gap 11.9 mmol/L (3-11); BUN 15 mg/dL (7-18); Bilirubin, Total 0.8 mg/dL (0.2-1.0); CO2 23.1 mmol/L (21.0-32.0); Calcium 8.8 mg/dL (8.5-10.1); Chloride 100 mmol/L (98-107); Glucose 90 mg/dL (74-106); Magnesium 1.8 mg/dL (1.8-2.4); Potassium 3.6 mmol/L (3.5-5.1); Sodium 135 mmol/L (136-145); TSH (W/Ref FT4) 1.04 uIU/mL (0.36-3.74); Total Protein 7.5 g/dL (6.4-8.2); Troponin I 53 ng/L (<or=76)
[2025-04-24] MEDS: Normal Saline - Diluent 50 ML VIAL IJ (17:21)
[2025-04-24] MEDS: Omnipaque 350 MG/ML 100 ML BTL IJ (17:21)
[2025-04-24 17:28] LABS: Glucose Negative (Negative)
[2025-04-24 17:30] LABS: Cannabinoids THC Positive (Negative)
--- NOTE | 2025-04-24 17:47 | DI.VRAD_ITS ---
PROCEDURE INFORMATION: Exam: CTA Head Without And With Contrast, Arteriography Exam date and time: 04/24/2025 5:15 PM Age: 50 years old Clinical indication: Stroke-like symptoms; Altered mental status/memory loss; Left upper extremity and left lower extremity numbness/paresthesia TECHNIQUE: Imaging protocol: Computed tomographic angiography of the head without and with contrast. Exam focused on the arteries. 3D rendering (Not supervised by radiologist): MIP and/or 3D reconstructed images were created by the technologist. Contrast material: OMNIPAQUE 350; Contrast volume: 70 ml; Contrast route: INTRAVENOUS (IV); Other technique: STROKE PROTOCOL was implemented. COMPARISON: No relevant prior studies available. FINDINGS: ANTERIOR CIRCULATION: Right internal carotid artery: Intracranial segment is patent with no evidence of hemodynamically significant stenosis. No aneurysm. Right middle cerebral artery: No occlusion or significant stenosis. No aneurysm. Right anterior cerebral artery: No occlusion or significant stenosis. No aneurysm. Left internal carotid artery: Intracranial segment is patent with no evidence of hemodynamically significant stenosis. No aneurysm. Left middle cerebral artery: No occlusion or significant stenosis. No aneurysm. Left anterior cerebral artery: No occlusion or significant stenosis. No aneurysm. POSTERIOR CIRCULATION: Right vertebral artery: No occlusion or significant stenosis. No aneurysm. Left vertebral artery: No occlusion or significant stenosis. No aneurysm. Basilar artery: No occlusion or significant stenosis. No aneurysm. Right posterior cerebral artery: No occlusion or significant stenosis. No aneurysm. Left posterior cerebral artery: No occlusion or significant stenosis. No aneurysm. HEAD: Brain: No intracranial hemorrhage or extra-axial fluid collection. No evidence of mass effect or midline shift. Au-white matter differentiation is intact. Cerebral ventricles: Normal. No ventriculomegaly. Bones: Unremarkable. No acute fracture. Paranasal sinuses: Visualized sinuses are normal. No fluid levels. Mastoid air cells: Visualized mastoids are normal. No mastoid effusion. Soft tissues: Unremarkable. IMPRESSION: 1. No intracranial arterial occlusion or significant stenosis. 2. No acute findings on non-contrast Head CT images. ASPECTS score 10. PROCEDURE INFORMATION: Exam: CTA Neck With Contrast Exam date and time: 04/24/2025 5:15 PM Age: 50 years old Clinical indication: Stroke-like symptoms; Altered mental status/memory loss; Left upper extremity and left lower extremity numbness/paresthesia TECHNIQUE: Imaging protocol: Computed tomographic angiography of the neck with contrast. Exam focused on the cervical segments of the vasculature. 3D rendering (Not supervised by radiologist): MIP and/or 3D reconstructed images were created by the technologist. Contrast material: OMNIPAQUE 350; Contrast volume: 70 ml; Contrast route: INTRAVENOUS (IV); COMPARISON: CR XR PORTABLE CHEST AP 07/13/2019 3:50 PM FINDINGS: Right common carotid artery: No significant stenosis. No dissection or occlusion. Right internal carotid artery: Extracranial segment is patent with no significant stenosis (0% stenosis by NASCET criteria). No dissection or occlusion. Right external carotid artery: No occlusion or significant stenosis. Left common carotid artery: No significant stenosis. No dissection or occlusion. Left internal carotid artery: Extracranial segment is patent with no significant stenosis (0% stenosis by NASCET criteria). No dissection or occlusion. Left external carotid artery: No occlusion or significant stenosis. Right vertebral artery: No significant stenosis. No dissection or occlusion. Left vertebral artery: No significant stenosis. No dissection or occlusion. Soft tissues: Unremarkable. Bones/joints: No acute fracture. IMPRESSION: No occlusion or significant stenosis in the arteries of the neck. REFERENCES: NASCET CRITERIA. The degree of stenosis in the cervical segment of the internal carotid artery is based on NASCET criteria. Normal is no stenosis. Mild is less than 50% stenosis. Moderate is 50-69% stenosis. Severe is 70% to 99% stenosis. Total occlusion is no detectable patent lumen. Dictated and Authenticated by: Say Núñez MD. Orderin Sylvia Miguel MD
[2025-04-24 18:05] LABS: Troponin I 63 ng/L (<or=76)
[2025-04-24] MEDS: Atorvastatin 40 MG TAB 80 MG PO ×2 (19:26→21:07)
[2025-04-24] MEDS: levETIRAcetam 1,000 MG in Normal Saline 100 ML 400 MG IVPB (19:26)
[2025-04-24] MEDS: Clopidogrel 300 MG TAB PO (19:26)
[2025-04-24] MEDS: Aspirin 325 MG TAB PO (19:26)
--- NOTE | 2025-04-24 19:41 | HPE_ITS ---
Date of service: 04/24/25 Time of Service: 19:41 Assessment and Plan Assessment and plan (1) Brain TIA: Status: Acute Assessment and plan: Presentation not typical for CVA/TIA with numbness as primary symptoms along with some fleeting alteration in conciousness. Current exam benign Evaluated by teleneuro who recommended treating as TIA/CVA with ASA/clopidogrel and atorvastatin Teleneuro also recommended levetiracetam to cover for seizure and EEG, which will need to be be done as outpatient. Cannabis cessation. Just had ARCHIE, will not repeat echo, but contniue mentally impaired teacher. MRI ordered for 04/25. Neuro checks, hold outpatient metoprolol for permissive HTN Get lipids/A1c (2) Paroxysmal atrial fibrillation: Status: Acute Assessment and plan: Typically sympotmatic, denies recent symptoms, but will need assessment for afib burden and consideration of anticoagulation given TIA. Even if this event wasn't thromboembolic, his risk if clearly higher with his TIA/CVA. For now, however, hold off on transitioning to anticoagulation unless MRI suggests thromboembolic stroke. (3) Severe obstructive sleep apnea in adult: Status: Acute Assessment and plan: per report minimal apnea with weight loss and side sleeping, not using CPAP/BiPAP (4) Aortic stenosis due to bicuspid aortic valve: Status: Acute Assessment and plan: Being evaluated for replacement, has weight loss goal prior to surgery. Not clearly symptomatic currently. Had recent pre-op ARCHIE and cardiac catheterization at [facility] [place] (5) Morbid obesity: Status: Acute Assessment and plan: Working on weight loss prior to valve replacement. On tirzepatide as outpatient. (6) GERD (gastroesophageal reflux disease): Status: Chronic Assessment and plan: Change from omeprazole to alternative PPI to avoid clopidogrel interaction, at least short term. (7) DVT prophylaxis: Status: Acute Assessment and plan: moderate risk, enoxaparin History of Present Illness History of Present Illness Chief Complaint: left sided numbness Narrative: 50 yo M with severe aortic stenosis pending replacement, BMI 46, HECTOR, and gout who presented with recurrent episodes of left sided numbness assocaited with altered consciousness. This first happened 3-4 weeks ago. The first time, he was sitting watching TV and over seconds the entire left side of his body (face, arm, leg) became tingly and numb. At the same time, he felt like he was in a dream and couldn't remember what he was doing, but never lost consciousness. No headache, no weakness or dizziness or nausea. This lasted 20-30 seconds, and recurred 4-5 x that day. He tells me he was not weak. That night, he remembers shaking like he had the chills and waking up having bit his tongue. Today, he had 2 more similar episodes, with less dramatic numbness but the same alteration of consciousness. This happened twice and lasted longer, like 2-3 minutes, and he decided to come in. He doesn't think he was slurring his speech at any time. No loss of balance, no trouble swallowing, no vision changes. No chest pain or palpitaitons or SOB. He typically feels when he is in atrial fibrillation and he hasn't had this in over a year, since loosing weight. No h/o similar symtpoms prior to the past month. Review of Systems All systems reviewed & are unremarkable except as noted in HPI and below PFSH All Active Problems (Updated 04/24/25 @ 19:53 by Olvin Levi) DVT prophylaxis (Acute) Brain TIA (Acute) Severe obstructive sleep apnea in adult (Acute) 06/22/24 diagnosed with sleep study 02/27/2022, was fitted with full face mask for CPAP RH Ascending aorta dilatation (Acute) Aortic stenosis due to bicuspid aortic valve (Acute) Diverticulitis (Chronic) Knee pain, bilateral (Acute) Gout (Chronic) GERD (gastroesophageal reflux disease) (Chronic) Bilateral leg edema (Acute) Prediabetes (Acute) Paroxysmal atrial fibrillation (Acute) Shoulder pain, left (Acute) Mood disorder (Acute) Aortic stenosis (Chronic) Morbid obesity (Acute) Atrial fibrillation with RVR (Acute) Primary osteoarthritis of left knee (Acute) Primary osteoarthritis of right knee (Acute) Injected: 05/03/2019 Surgical History (Updated 04/24/25 @ 20:55 by Olvin Levi) S/P cardiac catheterization [facility] 04/09 S/P knee surgery torn ligament left Family History Paternal Grandfather Heart disease MA Father Cancer lung [place] Social History (Updated 04/24/25 @ 20:56 by Olvin Levi) Smoking/Tobacco Use Status: Former Tobacco Use Smoking risk assessment performed?: Yes Alcohol Intake: never Drug use: Rarely Substance use type: marijuana Household members: other Details: mother Housing: house Current gender identity: male Do you feel safe at home: Yes Do you feel safe in your relationship?: Yes Additional Social history: Lives in [place] with mother. Formerly lived in [facility] Allergies and Home Medications Allergies Allergy/AdvReac Type Severity Reaction Status Date / Time No Known Allergies Allergy Verified 04/24/25 21:08 Home Medications Medication Instructions Recorded Confirmed Type allopurinol 100 mg tablet 100 mg PO DAILY 07/13/19 History meloxicam 15 mg tablet 15 mg PO DAILY 08/22/2106/16 History metoprolol succinate 50 mg 50 mg PO DAILY 08/22/21 History tablet,extended release 24 hr omeprazole 20 mg capsule,delayed 40 mg PO DAILY 07/01/24 History release tirzepatide (weight loss) 10 mg subcut 04/24/25 Histo ry mg/0.5 mL subcutaneous pen injector (Zepbound) Exam Narrative Exam Narrative: GEN: Alert and oriented x 4, pleasant and cooperative, gives linear history. No acute distress at rest. HEENT: Head atraumatic. Conjunctiva clear, no icterus. PEERL, EOMI. no rhinorrhea. MMM, OP benign. Neck is supple with no masses or lymphadenopathy, trachea midline LUNGS: CTAB with normal effort CV: RRR with 3/6 course systolic murmur RUSB, no gallops, or rubs. ABD: active bowel sounds, soft, nontender and nondistended. No masses. EXT: no cyanosis, clubbing. Trace ankle edema bilaterally MSK: No joint redness or swelling NEURO: CN 2-12 grossly intact. Nl sensation to light touch, normal strength in 4 extremities. Negative pronator drift. Normal fluid speech, DTRs symmetric, 2+. Normal FNF/MAUREEN/HTS. No tremor SKIN: No rashes or open wounds. Venous stasis hyperpigmentation lenore ankles. Puncture wounds from catheterization right wrist. PSYCH: normal mood and affect, normal thought process Results Imaging Imaging Studies: CTA head/neck: 1. No intracranial arterial occlusion or significant stenosis. 2. No acute findings on non-contrast Head CT images. ASPECTS score 10. No occlusion or significant stenosis in the arteries of the neck. . Labs 04/24/25 16:42 04/24/25 16:42 Labs: Laboratory Results - last 24 hr 04/24/25 04/24/25 04/24/25 16:42 17:00 17:43 WBC 9.07 RBC 4.49 Hgb 14.9 Hct 42.6 MCV 95 MCH 33.2 H MCHC 35.0 RDW 11.9 Plt Count 245 MPV 8.9 Immature Gran % 0.4 Neutrophils % 80.9 Lymphocytes % 9.4 Monocytes % 8.8 Eosinophils % 0.2 Basophils % 0.3 Nucleated RBC % 0.0 Absolute Neutrophils 7.33 H Absolute Lymphocytes 0.85 L Absolute Monocytes 0.80 Absolute Eosinophils 0.02 Absolute Basophils 0.03 PT 10.8 INR 1.1 APTT 25.5 VBG pH 7.43 H VBG pCO2 34 L VBG pO2 42 VBG HCO3 23 VBG Total CO2 20 L VBG O2 Saturation 81 VBG Base Excess -1 VBG Lactate 1.7 Sodium 135 L Potassium 3.6 Chloride 100 Carbon Dioxide 23.1 Anion Gap 11.9 H BUN 15 Creatinine 1.3 Est GFR (CKD-EPI 2020) 66.93 Glucose 90 Calcium 8.8 Magnesium 1.8 Total Bilirubin 0.8 AST 19 ALT 22 Alkaline Phosphatase 87 Troponin I 53 63 Total Protein 7.5 Albumin 3.7 TSH 1.04 Urine Color Yellow Urine Clarity Clear Urine pH 5.5 Ur Specific [place] 1.015 Urine Protein Negative Urine Ketones 40 H Urine Blood Negative Urine Nitrite Negative Urine Bilirubin Small H Urine Urobilinogen 0.2 Ur Leukocyte Esterase Negative Urine Glucose Negative Urine Opiates Screen Negative Urine Methadone Screen Negative Ur Barbiturates Screen Negative Ur Tricyclics Screen Negative Ur Amphetamines Screen Negative U Benzodiazepines Scrn Negative Urine Cocaine Screen Negative U Cannabinoids Screen Positive A Ethyl Alcohol < 3.0 04/24/25 19:26 WBC RBC Hgb Hct MCV MCH MCHC RDW Plt Count MPV Immature Gran % Neutrophils % Lymphocytes % Monocytes % Eosinophils % Basophils % Nucleated RBC % Absolute Neutrophils Absolute Lymphocytes Absolute Monocytes Absolute Eosinophils Absolute Basophils PT INR APTT VBG pH VBG pCO2 VBG pO2 VBG HCO3 VBG Total CO2 VBG O2 Saturation VBG Base Excess VBG Lactate Sodium Potassium Chloride Carbon Dioxide Anion Gap BUN Creatinine Est GFR (CKD-EPI 2020) Glucose Calcium Magnesium Total Bilirubin AST ALT Alkaline Phosphatase Troponin I Cancelled Total Protein Albumin TSH Urine Color Urine Clarity Urine pH Ur Specific [place] Urine Protein Urine Ketones Urine Blood Urine Nitrite Urine Bilirubin Urine Urobilinogen Ur Leukocyte Esterase Urine Glucose Urine Opiates Screen Urine Methadone Screen Ur Barbiturates Screen Ur Tricyclics Screen Ur Amphetamines Screen U Benzodiazepines Scrn Urine Cocaine Screen U Cannabinoids Screen Ethyl Alcohol Last Vital Signs Temp 37.2 C 04/24/25 16:32 Pulse 93 H 04/24/25 18:50 Resp 23 04/24/25 19:00 BP 132/88 04/24/25 19:26 Pulse Ox 95 04/24/25 18:50 Time Spent Time spent with Patient: 55-74 minutes Time was spent: preparing to see the patient(eg.review tests), obtaining and/or reviewing separately otained hiistory, ordering medications,tests, procedures, referring, communicating with other health primary health care nurse, indepentently interpreting results, counseling the patient and care coordination
[2025-04-24] MEDS: Normal Saline Flush 10 ML SYR IVP (23:30)
[2025-04-25 00:09] VITALS: BP 119/95; PULSE 96; RESP 16; TEMP 36.6; O2SAT 97
--- NOTE | 2025-04-25 00:15 | W.PC.ACHO ---
Registration Status: ADM HUMERA Primary Language: Preferred Language: Bol[place]ian ED Information & Data Chief Complaint CVA/TIA 04/24/25 16:59 Triage Note pt woke up today with blood 04/24/25 16:32 in mouth seconday to biting tongue at 2pm today pt had episode while talking to brother pt states was not able to remember speaking with brother and his left side went numb pt states all symptoms resolved (Last Updated 04/24/25 @ 20:55 by Olvin Levi) S/P cardiac catheterization S/P knee surgery Most Recent Vital Signs Temperature 36.6 C 04/25/25 00:09 Temperature Source Temporal Artery Scan 04/25/25 00:09 Pulse 96 H 04/25/25 00:09 Pulse Rhythm Regular 04/24/25 21:33 Pulse 108 H 04/24/25 19:00 Respiratory Rate 16 04/25/25 00:09 Respiratory Effort Normal 04/24/25 21:33 Respiratory Depth Normal 04/24/25 21:33 Respiratory Pattern Normal 04/24/25 21:33 Blood Pressure 119/95 H 04/25/25 00:09 Blood Pressure Mean 103 04/25/25 00:09 Pulse Oximetry 97 04/25/25 00:09 Oxygen Delivery Method Room Air 04/25/25 00:09 Oxygen Flow Rate 0 04/25/25 00:09 Pain Level 3 04/25/25 00:09 Allergies No Known Allergies Allergy (Verified 04/24/25 21:08) Active Medications Generic Name Dose Route Start Last Admin Trade Name Freq PRN Reason Stop Dose Admin Iohexol 100 ml 04/24/25 17:30 04/24/25 17:21 Omnipaque 350 Mg/Ml 100 Ml Btl IJ 05/24/25 23:59 70 ml DIRECTED MURTAZA Administration Sodium Chloride 0 ml 04/24/25 20:00 04/24/25 23:30 Normal Saline Flush 10 Ml Syr IVP 10 ml BID MURTAZA Administration Sodium Chloride 50 ml 04/24/25 17:30 04/24/25 17:21 Normal Saline - Diluent 50 Ml Vial IJ 50 ml DIRECTED MURTAZA Administration IV IV Catheter Type [Right Saline Lock Antecubital] IV Catheter Gauge [Right 18 Antecubital] Diet Orders Category Date Time Status Heart Healthy Eating [DIET] Nutrition 04/25/25 Breakfast Active Diagnostics 04/25/25 04/24/25 04/24/25 Range/Units 05:35 19:26 17:43 WBC (4.4-10.8) 10^3/uL RBC (4.36-5.78) 10^6/uL Hgb (13.5-17.5) g/dL Hct (40.0-50.0) % MCV (80-95) fL MCH (27.0-33.0) pg MCHC (32.0-36.0) % RDW (11.8-14.1) % Plt Count (130-400) 10^3/uL MPV (8.0-11.0) fL Immature Gran % % Neutrophils % % Lymphocytes % % Monocytes % % Eosinophils % % Basophils % % Nucleated RBC % (0.0-0.3) % Absolute Neutrophils (1.2-6.7) 10^3/uL Absolute Lymphocytes (1.2-3.4) 10^3/uL Absolute Monocytes (0.1-0.8) 10^3/uL Absolute Eosinophils (0.0-0.7) 10^3/uL Absolute Basophils (0.0-0.2) 10^3/uL PT (9.1-11.1) sec INR (0.9-1.1) APTT (20.6-30.2) sec VBG pH (7.31-7.41) VBG pCO2 (41-51) mmHg VBG pO2 mmHg VBG HCO3 (23-28) mmol/L VBG Total CO2 (24-29) mmol/L VBG O2 Saturation % VBG Base Excess (-2-3) mmol/L VBG Lactate (<or=2.0) mmol/L Sodium (136-145) mmol/L Potassium (3.5-5.1) mmol/L Chloride (98-107) mmol/L Carbon Dioxide (21.0-32.0) mmol/L Anion Gap (3-11) mmol/L BUN (7-18) mg/dL Creatinine (0.70-1.30) mg/dL Est GFR (CKD-EPI 2020) (mL/min/1.73m2) Glucose (74-106) mg/dL Hemoglobin A1c Pending Calcium (8.5-10.1) mg/dL Magnesium (1.8-2.4) mg/dL Total Bilirubin (0.2-1.0) mg/dL AST (15-37) U/L ALT (16-63) U/L Alkaline Phosphatase (46-116) U/L Troponin I Cancelled 63 (<or=76) ng/L Total Protein (6.4-8.2) g/dL Albumin (3.4-5.0) g/dL Triglycerides Pending Total Cholesterol Pending LDL Cholesterol, Calc Pending HDL Cholesterol Pending TSH (0.36-3.74) uIU/mL Urine Color (Yellow) Urine Clarity (Clear) Urine pH (5-8) Ur Specific [place] (1.005-1.025) Urine Protein (Neg-Trace) mg/dL Urine Ketones (Negative) mg/dL Urine Blood (Negative) Urine Nitrite (Negative) Urine Bilirubin (Negative) Urine Urobilinogen (Up to 0.2) mg/dL Ur Leukocyte Esterase (Negative) Urine Glucose (Negative) mg/dL Urine Opiates Screen (Negative) Urine Methadone Screen (Negative) Ur Barbiturates Screen (Negative) Ur Tricyclics Screen (Negative) Ur Amphetamines Screen (Negative) U Benzodiazepines Scrn (Negative) Urine Cocaine Screen (Negative) U Cannabinoids Screen (Negative) Ethyl Alcohol (<10) mg/dL 04/24/25 04/24/25 Range/Units 17:00 16:42 WBC 9.07 (4.4-10.8) 10^3/uL RBC 4.49 (4.36-5.78) 10^6/uL Hgb 14.9 (13.5-17.5) g/dL Hct 42.6 (40.0-50.0) % MCV 95 (80-95) fL MCH 33.2 H (27.0-33.0) pg MCHC 35.0 (32.0-36.0) % RDW 11.9 (11.8-14.1) % Plt Count 245 (130-400) 10^3/uL MPV 8.9 (8.0-11.0) fL Immature Gran % 0.4 % Neutrophils % 80.9 % Lymphocytes % 9.4 % Monocytes % 8.8 % Eosinophils % 0.2 % Basophils % 0.3 % Nucleated RBC % 0.0 (0.0-0.3) % Absolute Neutrophils 7.33 H (1.2-6.7) 10^3/uL Absolute Lymphocytes 0.85 L (1.2-3.4) 10^3/uL Absolute Monocytes 0.80 (0.1-0.8) 10^3/uL Absolute Eosinophils 0.02 (0.0-0.7) 10^3/uL Absolute Basophils 0.03 (0.0-0.2) 10^3/uL PT 10.8 (9.1-11.1) sec INR 1.1 (0.9-1.1) APTT 25.5 (20.6-30.2) sec VBG pH 7.43 H (7.31-7.41) VBG pCO2 34 L (41-51) mmHg VBG pO2 42 mmHg VBG HCO3 23 (23-28) mmol/L VBG Total CO2 20 L (24-29) mmol/L VBG O2 Saturation 81 % VBG Base Excess -1 (-2-3) mmol/L VBG Lactate 1.7 (<or=2.0) mmol/L Sodium 135 L (136-145) mmol/L Potassium 3.6 (3.5-5.1) mmol/L Chloride 100 (98-107) mmol/L Carbon Dioxide 23.1 (21.0-32.0) mmol/L Anion Gap 11.9 H (3-11) mmol/L BUN 15 (7-18) mg/dL Creatinine 1.3 (0.70-1.30) mg/dL Est GFR (CKD-EPI 2020) 66.93 (mL/min/1.73m2) Glucose 90 (74-106) mg/dL Hemoglobin A1c Calcium 8.8 (8.5-10.1) mg/dL Magnesium 1.8 (1.8-2.4) mg/dL Total Bilirubin 0.8 (0.2-1.0) mg/dL AST 19 (15-37) U/L ALT 22 (16-63) U/L Alkaline Phosphatase 87 (46-116) U/L Troponin I 53 (<or=76) ng/L Total Protein 7.5 (6.4-8.2) g/dL Albumin 3.7 (3.4-5.0) g/dL Triglycerides Total Cholesterol LDL Cholesterol, Calc HDL Cholesterol TSH 1.04 (0.36-3.74) uIU/mL Urine Color Yellow (Yellow) Urine Clarity Clear (Clear) Urine pH 5.5 (5-8) Ur Specific [place] 1.015 (1.005-1.025) Urine Protein Negative (Neg-Trace) mg/dL Urine Ketones 40 H (Negative) mg/dL Urine Blood Negative (Negative) Urine Nitrite Negative (Negative) Urine Bilirubin Small H (Negative) Urine Urobilinogen 0.2 (Up to 0.2) mg/dL Ur Leukocyte Esterase Negative (Negative) Urine Glucose Negative (Negative) mg/dL Urine Opiates Screen Negative (Negative) Urine Methadone Screen Negative (Negative) Ur Barbiturates Screen Negative (Negative) Ur Tricyclics Screen Negative (Negative) Ur Amphetamines Screen Negative (Negative) U Benzodiazepines Scrn Negative (Negative) Urine Cocaine Screen Negative (Negative) U Cannabinoids Screen Positive A (Negative) Ethyl Alcohol < 3.0 (<10) mg/dL Intake and Output - 24 Hour Total 04/24/25 16:24 thru 04/25/25 00:11 Intake Total 120 Balance 120 Weight 137.9 kg Intake: IV 120 Other: Urine Appearance Clear Falls Risk Assessment History of Falls No History 04/24/25 21:33 Contributing Factors No Factors 04/24/25 21:33 Ambulatory Aids Independent 04/24/25 21:33 Tubes/Lines W/no contributing factors 04/24/25 21:33 Gait Evaluation No gait disturbance 04/24/25 21:33 Cognition No cognitive impairment 04/24/25 21:33 Fall Total Score 10 04/24/25 21:33 Level of Risk Standard/Low Risk 04/24/25 21:33 Problems (Last Reviewed 07/01/24 @ 14:19 by Cheryl Rider MD) Aortic stenosis due to bicuspid aortic valve (Acute) Brain TIA (Acute) DVT prophylaxis (Acute) GERD (gastroesophageal reflux disease) (Chronic) Morbid obesity (Acute) Paroxysmal atrial fibrillation (Acute) Severe obstructive sleep apnea in adult (Acute) Attestation Statement: By documenting the first initial, last name, and credentials of the reporting nurse below, both parties acknowledge that all relevant information regarding the patient handoff has been communicated, and that all questions have been addressed to ensure continuity and safety of care. Additional Patient Information/Comments: Pt arrived to ED c/o a recent period of numbness, memory loss, and confusion upon waking. Has also bitten his tongue while sleeping. Pt smokes 0.25 oz marijuana per day. Received ASA, atorvastatin, Plavix, Keppra, and omeprazole in ED. All imaging and labs benign. Held for observation to r/o CVA/TIA. Report Received From: ANNIE Rhodes RN
[2025-04-25 05:49] VITALS: BP 95/62; PULSE 87
--- NOTE | 2025-04-25 07:00 | DI.MRI_ITS ---
Exam(s) MR BRAIN WO EXAM: MR BRAIN WO CLINICAL HISTORY: TIA/CVT, left side numbess, MS change episodes TECHNIQUE: Multiplanar multisequence MRI of the brain was performed. COMPARISON: CT CT BRAIN NECK CTA from 04/24/2025 FINDINGS: CEREBRAL PARENCHYMA: There is no evidence of intracranial hemorrhage, mass effect, or shift of midline structures. There are no extra-axial fluid collections. Ventricles are mildly asymmetric on a elemental basis. Not significantly enlarged or shifted. There is no significant focal signal abnormality in the cerebellar hemispheres nor within the blaise, midbrain, and thalami. There are few tiny foci of FLAIR bright signal abnormality in the periventricular white matter and anterior forceps frontal lobe white matter, all measuring less than 4mm. No evidence of obvious demyelinating disease. There is no significant focal signal abnormality evident on diffusion imaging to suggest acute ischemic event. PITUITARY GLAND: No mass nor parasellar abnormality. No obvious abnormality in the cavernous sinuses. FLOW VOIDS: The expected flow void are noted. No evidence of obvious aneurysm nor obvious vascular malformation. Left vertebral artery is dominant at the skull base. PARANASAL SINUSES: Small amount of fluid in the right maxillary sinus evident. Some focal mucosal thickening is noted in the medial wall of the left maxillary sinus. There is no fluid in the left maxillary sinus. Sphenoid sinuses are clear as are the frontal sinuses and ethmoidal air cells. ORBITS: No obvious findings. IMPRESSION: Minimal findings. No evidence of restricted diffusion to suggest infarct. There are few tiny foci of FLAIR bright signal abnormality which measure less than 4 mm size and are nonspecific; doubtful for demyelinating disease. DATA REPOSITORY:
[2025-04-25 07:06] LABS: Cholesterol 134 mg/dL (<200); HDL Cholesterol 36 mg/dL (>or=40)
[2025-04-25 07:09] LABS: Hemoglobin A1C 5.1 % (<5.7)
[2025-04-25 07:31] VITALS: BP 100/67; PULSE 84; RESP 16; TEMP 36.8; O2SAT 94
[2025-04-25] MEDS: Allopurinol 100 MG TAB PO (08:05)
[2025-04-25] MEDS: Aspirin 81 MG CHEW PO (08:05)
[2025-04-25] MEDS: Clopidogrel 75 MG TAB PO (08:05)
[2025-04-25] MEDS: Enoxaparin 40 MG/0.4 ML SYR SC (08:05)
[2025-04-25] MEDS: Pantoprazole 40 MG TABCR PO (08:05)
[2025-04-25] MEDS: Normal Saline Flush 10 ML SYR IVP ×2 (08:06→19:17)
[2025-04-25] MEDS: levETIRAcetam 500 MG TAB PO ×2 (08:30→19:18)
[2025-04-25 11:29] VITALS: BP 114/79; PULSE 73; RESP 17; TEMP 36.8; O2SAT 95
--- NOTE | 2025-04-25 15:00 | PHA.REVIEW2 ---
Pharmacy Admission Review Admission Clinical Review Admission Pharmacy Review: DVT prophylaxis (Acute) Brain TIA (Acute) Severe obstructive sleep apnea in adult (Acute) Aortic stenosis due to bicuspid aortic valve (Acute) Paroxysmal atrial fibrillation (Acute) Morbid obesity (Acute) No Known Allergies Allergy (Verified 04/24/25 21:08) Resuscitation Status Full Code Height 5 ft 8 in Weight 137.9 kg Pharmacy Admission Review Renal Dosing Renal Dosing: BUN 15 mg/dL (7-18) 04/24/25 16:42 Creatinine 1.3 mg/dL (0.70-1.30) 04/24/25 16:42 Medications needing adjustments: Reviewed (CRCL=92; NO MEDS NEED ADJUSTMENT) Anticoagulation Anticoagulation: Hgb 14.9 g/dL (13.5-17.5) 04/24/25 16:42 Hct 42.6 % (40.0-50.0) 04/24/25 16:42 Plt Count 245 10^3/uL (130-400) 04/24/25 16:42 INR 1.1 (0.9-1.1) 04/24/25 16:42 Creatinine 1.3 mg/dL (0.70-1.30) 04/24/25 16:42 DVT Prophylaxis: Reviewed Medications: Enoxaparin Opiate Usage Evaluate Pain Scale/Pains Meds: N/A Relevant Labs Relevant Labs: Sodium 135 mmol/L (136-145) L 04/24/25 16:42 Potassium 3.6 mmol/L (3.5-5.1) 04/24/25 16:42 Chloride 100 mmol/L (98-107) 04/24/25 16:42 Magnesium 1.8 mg/dL (1.8-2.4) 04/24/25 16:42 Electrolytes, C-Reactive P, ESR: Reviewed DM Control DM Control: Reviewed (AM GLUCOSE=90; LEX1F=2.1) Cardiac Review Cardiac Review: Troponin I Cancelled 04/24/25 19:26 BP, HR, EF%: Reviewed List meds needing interventions: Reviewed KZ=235/79; HR=73; holding home metoprolol for permissive hypertension QTc Review QTc: Reviewed (due=638) IV to PO Switch IV Medications: Reviewed (all current meds po) Home Meds Home Med List reviewed: Reviewed Relevent Home Meds Not ordered & why?: metoprolol-holding for permissive hypertension Current Meds Current Medication Order Review: Reviewed (no changes to current meds) Pharmacy Antibiotic Review Comments: no antibiotics at this time
--- NOTE | 2025-04-25 15:51 | PDOC.EEG ---
Neurology EEG EEG: [facility] Department of Neurology INPATIENT EEG REPORT Date of Recordin04/25/25 Interpreting Physician: Dr. Malissa Hurt Reason for study: Ashlyn Mendez is a 50 year-old admitted s/p recurrent spells of left hemiparaesthesias with altered sensorium. Mr. Mendez has known p.afib. Current Medications: Current Medications Acetaminophen (Acetaminophen 325 Mg Tab) 650 mg PO Q4H PRN PRN Allopurinol (Allopurinol 100 Mg Tab) 100 mg PO DAILY [facility] Last Admin: 04/25/25 08:05 Dose: 100 mg Aspirin (Aspirin 81 Mg Chew) 81 mg PO DAILY [facility] Last Admin: 04/25/25 08:05 Dose: 81 mg Atorvastatin Calcium (Atorvastatin 40 Mg Tab) 80 mg PO QPM [facility] Clopidogrel Bisulfate (Clopidogrel 75 Mg Tab) 75 mg PO DAILY [facility] Last Admin: 04/25/25 08:05 Dose: 75 mg Diclofenac Sodium (Diclofenac 1% Gel 100 Gm Tube) 100 gm TP QID [facility] Last Admin: 04/25/25 15:14 Dose: Not Given Enoxaparin Sodium (Enoxaparin 40 Mg/0.4 Ml Syr) 40 mg SC DAILY [facility] Last Admin: 04/25/25 08:05 Dose: 40 mg Hydroxyzine HCl (Hydroxyzine Hcl 25 Mg Tab) 25 mg PO HS PRN PRN IV Miscellaneous Supplies (Iv Access) 1 each IV DIRECTED [facility] Iohexol (Omnipaque 350 Mg/Ml 100 Ml Btl) 100 ml IJ DIRECTED [facility] Stop: 05/24/25 23:59 Last Admin: 04/24/25 17:21 Dose: 70 ml Levetiracetam (Levetiracetam 500 Mg Tab) 500 mg PO BID [facility] Last Admin: 04/25/25 08:30 Dose: 500 mg Pantoprazole Sodium (Pantoprazole 40 Mg Tabcr) 40 mg PO DAILY@0730 [facility] Last Admin: 04/25/25 08:05 Dose: 40 mg Polyethylene Glycol (Polyethylene Glycol 3350 17 Gm Packet) 17 gm PO DAILY PRN PRN PRN Reason: Constipation Sodium Chloride (Normal Saline Flush 10 Ml Syr) 0 ml IVP PRN PRN Sodium Chloride (Normal Saline Flush 10 Ml Syr) 0 ml IVP BID [facility] Last Admin: 04/25/25 08:06 Dose: 10 ml Sodium Chloride (Normal Saline 10 Ml Vial) 0 ml IJ DIRECTED PRN Sodium Chloride (Normal Saline - Diluent 50 Ml Vial) 50 ml IJ DIRECTED [facility] Last Admin: 04/24/25 17:21 Dose: 50 ml Sodium Chloride (Normal Saline Flush 10 Ml Syr) 0 ml IVP PRN PRN METHODS: A 21 channel digitized electroencephalogram was performed in the [facility] Med/Surg Floor or ICU. The 10/20 international system of electrode placement was used and bipolar and referential electrode montages were recorded. In addition to EEG the patient was monitored for EKG and lateral/vertical eye movements. Activation procedures of photic stimulation and hyperventilation were performed if applicable. Video was used during activation procedures and during events where applicable. The duration of the recording was 30 minutes. DESCRIPTION OF EEG: The patient was noted to be awake, drowsy, and asleep during the recording. During maximal wakefulness a 9-Hz posterior background rhythm was present which was well-modulated, symmetrical, reactive to eye opening, and of moderate voltage. With eye opening the background activity changed to a low voltage mixture of alpha, beta, and occasional theta range frequencies. Faster frequencies were present in the bilateral anterior head regions. There was a normal anterior-posterior voltage gradient. During drowsiness, there was attenuation of the posterior dominant background rhythm and vertex waves. Stage II sleep was present with symmetrical sleep spindles, K-complexes, and vertex waves. Activating Procedures: Photic stimulation was performed which produced a symmetrical posterior driving response at various flash frequencies. Hyperventilation was performed with moderate effort and produced no physiological slowing of the background. EKG: EKG revealed an irregularly irregular rhythm. INTERPRETATION: This EEG is normal during the awake and sleep states as well as during photic stimulation and hyperventilation. The EKG showed an irregular rhythm. PRIOR EEG: none CLINICAL CORRELATION: No focal regions of cerebral dysfunction or epileptiform activity was present. Epilepsy remains a clinical diagnosis and a normal EEG does not rule out epilepsy. Clinical correlation is advised. Malissa Hurt MD Date of service: 04/25/25
--- NOTE | 2025-04-25 17:04 | W.PM.PROGNOT ---
Date of Service Date of service: 04/25/25 Time of Service: 14:00 Assessment and Plan Assessment and plan (1) Brain TIA: Status: Acute Assessment and plan: Presentation not typical for CVA/TIA with numbness as primary symptoms along with some fleeting alteration in conciousness. Current exam benign Evaluated by teleneuro who recommended treating as TIA/CVA with ASA/clopidogrel and atorvastatin Teleneuro also recommended levetiracetam to cover for seizure and EEG, which will need to be be done as outpatient. Cannabis cessation. Just had ARCHIE, will not repeat echo, but contniue cardiac nurse practitioner. MRI ordered for 04/25. Neuro checks, hold outpatient metoprolol for permissive HTN Get lipids/A1c April 25: MRI and EEG done, awaiting teleneurology re-consult (2) Paroxysmal atrial fibrillation: Status: Acute Assessment and plan: Typically sympotmatic, denies recent symptoms, but will need assessment for afib burden and consideration of anticoagulation given TIA. Even if this event wasn't thromboembolic, his risk if clearly higher with his TIA/CVA. For now, however, hold off on transitioning to anticoagulation unless MRI suggests thromboembolic stroke. (3) Severe obstructive sleep apnea in adult: Status: Acute Assessment and plan: per report minimal apnea with weight loss and side sleeping, not using CPAP/BiPAP (4) Aortic stenosis due to bicuspid aortic valve: Status: Acute Assessment and plan: Being evaluated for replacement, has weight loss goal prior to surgery. Not clearly symptomatic currently. Had recent pre-op ARCHIE and cardiac catheterization at [facility] (5) Morbid obesity: Status: Acute Assessment and plan: Working on weight loss prior to valve replacement. On tirzepatide as outpatient. (6) GERD (gastroesophageal reflux disease): Status: Chronic Assessment and plan: Change from omeprazole to alternative PPI to avoid clopidogrel interaction, at least short term. (7) DVT prophylaxis: Status: Acute Assessment and plan: moderate risk, enoxaparin Subjective Subjective Interval history since last seen: Mr. Mendez is somnolent, rousable. No complaints. Exam Narrative Exam Narrative: General: This is a pleasant man in no distress HEENT: Normocephalic, atraumatic CV: RRR. Coarse systolic RUSB murmur Resp: CTAB Abd: soft, NTND MSK: voluntary motion x4 Neuro: awake, alert, no focal deficits Objective Last Vital Signs Temp 36.8 C 04/25/25 11:29 Pulse 73 04/25/25 11:29 Resp 17 04/25/25 11:29 BP 114/79 04/25/25 11:29 Pulse Ox 95 04/25/25 11:29 Laboratory Results - last 24 hr 04/24/25 04/24/25 04/24/25 16:42 17:00 17:43 WBC 9.07 RBC 4.49 Hgb 14.9 Hct 42.6 MCV 95 MCH 33.2 H MCHC 35.0 RDW 11.9 Plt Count 245 MPV 8.9 Immature Gran % 0.4 Neutrophils % 80.9 Lymphocytes % 9.4 Monocytes % 8.8 Eosinophils % 0.2 Basophils % 0.3 Nucleated RBC % 0.0 Absolute Neutrophils 7.33 H Absolute Lymphocytes 0.85 L Absolute Monocytes 0.80 Absolute Eosinophils 0.02 Absolute Basophils 0.03 PT 10.8 INR 1.1 APTT 25.5 Sodium 135 L Potassium 3.6 Chloride 100 Carbon Dioxide 23.1 Anion Gap 11.9 H BUN 15 Creatinine 1.3 Est GFR (CKD-EPI 2020) 66.93 Glucose 90 Hemoglobin A1c Calcium 8.8 Magnesium 1.8 Total Bilirubin 0.8 AST 19 ALT 22 Alkaline Phosphatase 87 Troponin I 53 63 Total Protein 7.5 Albumin 3.7 Triglycerides Total Cholesterol LDL Cholesterol, Calc HDL Cholesterol TSH 1.04 Urine Color Yellow Urine Clarity Clear Urine pH 5.5 Ur Specific [place] 1.015 Urine Protein Negative Urine Ketones 40 H Urine Blood Negative Urine Nitrite Negative Urine Bilirubin Small H Urine Urobilinogen 0.2 Ur Leukocyte Esterase Negative Urine Glucose Negative Urine Opiates Screen Negative Urine Methadone Screen Negative Ur Barbiturates Screen Negative Ur Tricyclics Screen Negative Ur Amphetamines Screen Negative U Benzodiazepines Scrn Negative Urine Cocaine Screen Negative U Cannabinoids Screen Positive A Ethyl Alcohol < 3.0 04/24/25 04/25/25 19:26 06:11 WBC RBC Hgb Hct MCV MCH MCHC RDW Plt Count MPV Immature Gran % Neutrophils % Lymphocytes % Monocytes % Eosinophils % Basophils % Nucleated RBC % Absolute Neutrophils Absolute Lymphocytes Absolute Monocytes Absolute Eosinophils Absolute Basophils PT INR APTT Sodium Potassium Chloride Carbon Dioxide Anion Gap BUN Creatinine Est GFR (CKD-EPI 2020) Glucose Hemoglobin A1c 5.1 Calcium Magnesium Total Bilirubin AST ALT Alkaline Phosphatase Troponin I Cancelled Total Protein Albumin Triglycerides 47 Total Cholesterol 134 LDL Cholesterol, Calc 89 HDL Cholesterol 36 L TSH Urine Color Urine Clarity Urine pH Ur Specific [place] Urine Protein Urine Ketones Urine Blood Urine Nitrite Urine Bilirubin Urine Urobilinogen Ur Leukocyte Esterase Urine Glucose Urine Opiates Screen Urine Methadone Screen Ur Barbiturates Screen Ur Tricyclics Screen Ur Amphetamines Screen U Benzodiazepines Scrn Urine Cocaine Screen U Cannabinoids Screen Ethyl Alcohol Time Spent with Patient Time Spent with Patient: 25-34 minutes Time was spent: preparing to see the patient(eg.review tests), obtaining and/or reviewing separately otained hiistory, ordering medications,tests, procedures, referring, communicating with other health emergency care attendant, indepentently interpreting results, counseling the patient and care coordination
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
[2025-04-25] MEDS: Atorvastatin 40 MG TAB 80 MG PO (19:17)
[2025-04-25 19:20] VITALS: BP 102/81; PULSE 72; RESP 18; TEMP 36.2; O2SAT 96
[2025-04-25 23:25] VITALS: BP 107/83; PULSE 76; RESP 18; TEMP 36.3; O2SAT 97
[2025-04-26 03:26] VITALS: BP 110/83; PULSE 80; RESP 19; TEMP 36.3; O2SAT 96
[2025-04-26] MEDS: Enoxaparin 40 MG/0.4 ML SYR SC (07:42)
[2025-04-26] MEDS: Aspirin 81 MG CHEW PO (07:42)
[2025-04-26] MEDS: Metoprolol CR 50 MG TABCR PO (07:42)
[2025-04-26] MEDS: Pantoprazole 40 MG TABCR PO (07:42)
[2025-04-26] MEDS: Allopurinol 100 MG TAB PO (07:42)
[2025-04-26] MEDS: Clopidogrel 75 MG TAB PO (07:42)
[2025-04-26] MEDS: levETIRAcetam 500 MG TAB PO (07:42)
[2025-04-26] MEDS: Normal Saline Flush 10 ML SYR IVP (07:43)
[2025-04-26 07:49] VITALS: BP 108/79; PULSE 80; TEMP 35.9; O2SAT 98
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
== END 2025-04-26 15:34 | disposition home or self-care (01) ==
LOC: ER 19:22 → MS 21:26
PROVIDERS: Admitting Provider Family Medicine; Emergency Provider Emergency Medicine; PCP Physician Assistant; Responsible Provider Family Medicine; Visit Provider Family Medicine
DX: G45.9 Transient cerebral ischemic attack, unspecified (principal); I48.0 Paroxysmal atrial fibrillation; R41.82 Altered mental status, unspecified; Z68.42 Body mass index [BMI] 45.0-49.9, adult; G47.33 Obstructive sleep apnea (adult) (pediatric); E66.01 Morbid (severe) obesity due to excess calories; R73.03 Prediabetes; K21.9 Gastro-esophageal reflux disease without esophagitis; R20.2 Paresthesia of skin; Q23.81 Bicuspid aortic valve; I35.0 Nonrheumatic aortic (valve) stenosis; I77.810 Thoracic aortic ectasia; M10.9 Gout, unspecified; R60.0 Localized edema; M17.0 Bilateral primary osteoarthritis of knee; Z59.82 Transportation insecurity; Z59.89 Other problems related to housing and economic circumstances; Z73.89 Other problems related to life management difficulty; R45.89 Other symptoms and signs involving emotional state; G40.909 Epilepsy, unspecified, not intractable, without status epilepticus
CPT/HCPCS: 00123; 36415; 70496; 70498; 80053; 80061; 80307; 82805; 93005; 95819; 96365; 96366; 99285; J1650; 70551; 80320; 81003; 83036; 83605; 83735; 84443; 84484; 85025; 85610; 85730; 93010; 99222; 99231; 99239; G0378; J1953; J3490